=== PATIENT | female | born 1935 | race Caucasian/White ===

== ENCOUNTER 2018-01-29 23:58 | Emergency (ER) | payer BC ==
[~2018-01-29] VITALS: Ht 162.6 cm; Wt 77.1 kg
[~2018-01-29 23:58] MED LIST: ALPRAZOLAM 0.50.5 MG; AMBIEN 10 MG TA10 MG; AMBIEN 10 MG TA10 MG PO; AMBIEN PO; ATIVAN0.5 MG; BENADRYL25 MG PO; CIPROFLOXACIN500 M1 PO; CIPROFLOXACIN500 M3 PO; CLARITIN10 MG PO; COZAAR 25 MG TA25 M1 PO; CYMBALTA30 MG; CYMBALTA30 MG PO; FLAGYL500 MG PO; FLONASE 0.05%50 MCG NASAL; GABAPENTIN 100100 MG PO; HYDROCODON-ACE1 EA11 PO; LASIX 20 MG TAB20 MG PO; LASIX 40 MG TAB40 M2 PO; LISINOPRIL-HCT1 EAC2; LISINOPRIL20 MG PO; MACROBID 100 M100 M1 PO; MEDROLDOSEPACK PO; MOBIC7.5 MG PO; NAPROSYN500 MG PO; NORCO 5-325 TA1 EACH PO; PEPCID20 MG PO; POTASSIUM20 PO; PREDNISONE 20 M20 M1 PO; PREVACID 30MG C30 M1 PO; PREVACID15 MG PO; TOPROL XL100 MG; TOPROL XL50 MG PO; TRAMADOL 50 MG50 MG PO; ULTRAM 50MG TAB50 MG PO; VICODIN; VICODIN ES 7.51 EACH; VOLTAREN GEL 1100 G2 TOP; XANAX 0.25 MG0.25 MG PO; ZANTAC 150MG T150 MG PO; ZOFRAN4 MG PO
[2018-01-30] MEDS ORDERED: FLEXERIL PO (00:29)
[2018-01-30 00:49] LABS: URINE BILIRUBIN NEGATIVE (Negative); URINE BLOOD 1+ (Negative); URINE CLARITY CLEAR; URINE COLOR YELLOW; URINE GLUCOSE-RANDOM NEGATIVE (Negative); URINE KETONES NEGATIVE (Negative); URINE LEUKOCYTES-REFLEX TRACE (Negative); URINE NITRITE-REFLEX NEGATIVE (Negative); URINE PROTEIN 2+ (Negative); URINE SPECIFIC GRAVITY 1.025 (1.005-1.030); URINE UROBILINOGEN 0.2 E.U./dl (0.2-1.0)
[2018-01-30 00:58] LABS: ABSOLUTE MONOCYTES 0.7 thou/uL (0.0-1.2); ABSOLUTE NEUTROPHILS 7.6 thou/uL (1.6-8.1); BASOPHILS 0.4 %; EOSINOPHILS 0.5 %; HEMATOCRIT 38.7 % (37.0-47.0); HEMOGLOBIN 12.7 gm/dL (12.0-15.0); LYMPHOCYTES 19.2 %; MCH 29.3 pg (26.0-34.0); MCHC 32.8 g/dL (28.0-37.0); MCV 89.5 fL (80.0-100.0); MONOCYTES 6.9 %; MPV 7.8 fl. (7.2-11.1); NUCLEATED RBCS 0 /100WBC; PLATELET COUNT* 281 thou/uL (150-400); RBC 4.32 mil/uL (4.20-5.00); RDW-CV 14.6 % (10.5-14.5); WBC 10.3 thou/uL (4.0-11.0)
[2018-01-30 01:01] LABS: CALCIUM 9.1 mg/dL (8.5-10.1); CREATININE 1.3 mg/dL (0.6-1.3); POTASSIUM 3.6 mmol/L (3.5-5.1)
[2018-01-30 01:07] LABS: ALBUMIN 3.5 g/dL (3.4-5.0); TOTAL BILIRUBIN 0.5 mg/dL (<0.1-1.0); TOTAL PROTEIN 7.8 g/dL (6.4-8.2)
[2018-01-30 02:00] LABS: CASTS None Seen /LPF (None Seen); SQUAMOUS >10 Many /LPF (0-3)
[2018-01-30 02:01] LABS: BACTERIA-REFLEX 1-9 Few /HPF (None Seen); CRYSTALS None Seen /LPF (None Seen); MUCUS 0-3 Light strn/LPF (None Seen); URINE RBC 0-2 Rare /HPF (0-2); URINE WBC-REFLEX 0-5 Rare /HPF (0-5)
[2018-01-30] MEDS ORDERED: FLAGYL500 MG PO (03:35)
[2018-01-30] MEDS ORDERED: HYDROCODON-ACE1 EAC7 PO (03:36)
[2018-01-30] MEDS ORDERED: ZOFRAN4 MG PO (03:36)
[2018-01-30 03:44] VITALS: BP 158/86
--- NOTE | 2018-01-30 13:42 | EKG ---
[place] [address] ELECTROCARDIOGRAM REPORT Name: ANTONIA SQUIRES Room: 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: MICHAEL Stapleton : 1935 Requested By: Darnell Celestin Order Number: [id number] MD: Abhijeet Patel Measurements Intervals Radisson Rate: 82 P: 78 OK: 214 QRS: -11 QRSD: 83 T: 11 QT: 392 QTc: 458 Interpretive Statements Sinus rhythm Borderline prolonged OK interval Low voltage, precordial leads LVH by voltage Compared to ECG 05/13/2017 08:06:07 T-wave abnormality no longer present Electronically Signed On 01-30-2018 13:41:54 CDT by Abhijeet Patel [email or web address] <ELECTRONICALLY SIGNED> By: Abhijeet Patel MD, [facility] 01/30/18 1341 0057 0057 Abhijeet Patel MD, [facility] /EPI
== END 2018-01-30 03:55 | disposition home or self-care (01) ==
LOC: M.ERS 23:58
PROVIDERS: Emergency Medicine
DX: K52.9 Noninfective gastroenteritis and colitis, unspecified (principal); F41.9 Anxiety disorder, unspecified; E11.9 Type 2 diabetes mellitus without complications; F32.9 Major depressive disorder, single episode, unspecified; G25.81 Restless legs syndrome; Z88.5 Allergy status to narcotic agent; Z90.710 Acquired absence of both cervix and uterus; Z90.89 Acquired absence of other organs; Z88.8 Allergy status to other drugs, medicaments and biological substances; Z88.2 Allergy status to sulfonamides

== ENCOUNTER → 2018-03-21 | Outpatient (CLI) | payer BC ==
[~2018-03-21] MED LIST changes: +ACYCLOVIR 400400 MG PO; +COLACE100 MG PO; +FLEXERIL PO; +HYDROCODON-ACE1 EAC7 PO; +OMEGA-31000 M1 PO; +OMEPRAZOLE20 M1 PO
== END ==
LOC: M.RAD 13:29
DX: N63.20 Unspecified lump in the left breast, unspecified quadrant (principal); N64.52 Nipple discharge; R92.8 Other abnormal and inconclusive findings on diagnostic imaging of breast; Z85.3 Personal history of malignant neoplasm of breast

== ENCOUNTER 2018-05-31 12:37 | Emergency (ER) | payer BC ==
[~2018-05-31] VITALS: Ht 162.6 cm; Wt 79.4 kg
[~2018-05-31 12:37] MED LIST changes: -ACYCLOVIR 400400 MG PO; -COLACE100 MG PO; -OMEGA-31000 M1 PO; -OMEPRAZOLE20 M1 PO
[2018-05-31] MEDS ORDERED: COLACE100 MG PO (12:53)
[2018-05-31] MEDS ORDERED: OMEGA-31000 M1 PO (12:54)
[2018-05-31] MEDS ORDERED: OMEPRAZOLE20 M1 PO (12:54)
[2018-05-31] MEDS ORDERED: NORCO 5-325 TA1 EACH PO (13:44)
[2018-05-31] MEDS ORDERED: ACYCLOVIR 400400 MG PO (13:44)
[2018-05-31 14:00] VITALS: BP 138/60
== END 2018-05-31 14:01 | disposition home or self-care (01) ==
LOC: M.ERS 12:37
DX: B02.9 Zoster without complications (principal); G25.81 Restless legs syndrome; F41.9 Anxiety disorder, unspecified; I10 Essential (primary) hypertension; E11.9 Type 2 diabetes mellitus without complications; F32.9 Major depressive disorder, single episode, unspecified; Z88.5 Allergy status to narcotic agent; Z88.2 Allergy status to sulfonamides; Z88.1 Allergy status to other antibiotic agents; Z88.8 Allergy status to other drugs, medicaments and biological substances; Z90.710 Acquired absence of both cervix and uterus; Z98.890 Other specified postprocedural states; Z90.49 Acquired absence of other specified parts of digestive tract

== ENCOUNTER → 2019-07-03 | Outpatient (CLI) | payer BC ==
[~2019-07-03] MED LIST changes: +ACYCLOVIR 400400 MG PO; +COLACE100 MG PO; +OMEGA-31000 M1 PO; +OMEPRAZOLE20 M1 PO
== END ==
LOC: M.RAD 11:00
DX: Z12.31 Encounter for screening mammogram for malignant neoplasm of breast (principal)

== ENCOUNTER 2020-02-25 10:07 | Inpatient (IN) | payer BC ==
[~2020-02-25] VITALS: Ht 162.6 cm; Wt 82.1 kg
[2020-02-25 10:20] VITALS: BP 157/77
[2020-02-25 11:18] LABS: ABSOLUTE BASOPHILS 0.1 thou/uL (0.0-0.2); ABSOLUTE EOSINOPHILS 0.2 thou/uL (0.0-0.7); ABSOLUTE LYMPHOCYTES 1.2 thou/uL (0.8-5.3); ABSOLUTE MONOCYTES 0.9 thou/uL (0.0-1.2); ABSOLUTE NEUTROPHILS 6.6 thou/uL (1.6-8.1); BASOPHILS 0.6 %; EOSINOPHILS 2.5 %; HEMATOCRIT 38.1 % (37.0-47.0); LYMPHOCYTES 13.2 %; MCH 30.5 pg (26.0-34.0); MCHC 34.1 g/dL (28.0-37.0); MCV 89.5 fL (80.0-100.0); MONOCYTES 10.1 %; MPV 7.6 fl. (7.2-11.1); NUCLEATED RBCS 0 /100WBC; PLATELET COUNT* 288 thou/uL (150-400); POLYS 73.6 %; RBC 4.26 mil/uL (4.20-5.00); RDW-CV 14.4 % (10.5-14.5)
[2020-02-25 11:27] LABS: CALCIUM 8.4 mg/dL (8.5-10.1); CREATININE 1.3 mg/dL (0.6-1.3); POTASSIUM 3.9 mmol/L (3.5-5.1)
[2020-02-25 11:32] LABS: TOTAL BILIRUBIN 0.5 mg/dL (<0.1-1.0); TOTAL PROTEIN 7.8 g/dL (6.4-8.2)
[2020-02-25 12:30] LABS: URINE BILIRUBIN NEGATIVE (Negative); URINE BLOOD TRACE (Negative); URINE CLARITY CLEAR; URINE COLOR YELLOW; URINE GLUCOSE-RANDOM NEGATIVE (Negative); URINE KETONES NEGATIVE (Negative); URINE NITRITE-REFLEX NEGATIVE (Negative); URINE PROTEIN NEGATIVE (Negative); URINE UROBILINOGEN 0.2 E.U./dl (0.2-1.0)
[2020-02-25] MEDS ORDERED: OXYBUTYNIN 5 MG5 M2 PO (12:30)
[2020-02-25] MEDS ORDERED: SERTRALINE HCL100 MG PO (12:30)
[2020-02-25 12:31] LABS: URINE LEUKOCYTES-REFLEX 2+ (Negative)
[2020-02-25] MEDS ORDERED: CIMETIDINE 400400 MG PO (12:31)
[2020-02-25 12:45] LABS: BACTERIA-REFLEX 1-9 Few /HPF (None Seen); CASTS None Seen /LPF (None Seen); CRYSTALS None Seen /LPF (None Seen); MUCUS None Seen strn/LPF (None Seen); RENAL EPITHELIAL CELLS 0-3 Few /LPF (None Seen); SQUAMOUS 4-10 Moderate /LPF (0-3); URINE RBC 0-2 Rare /HPF (0-2); URINE WBC-REFLEX 6-15 Few /HPF (0-5)
[2020-02-25 15:55] VITALS: BP 151/73
[2020-02-25 16:05] VITALS: BP 161/80
--- NOTE | 2020-02-25 19:35 | NUR ---
PATIENT ARRIVED FROM ER THIS EVENING. PATIENT SETTLED TO BED AND HISTORY, SSESSMENT AND VITALS COMPLETED AND DOCUMENTED. WOUND TO LEFT 2ND TOE CULTURED AND PICTURE TAKEN. PATIENT DENIES ANY PAIN. PATIENT HAS GOOD APPETITE. NEW IV STARTED TO LEFT AC. PATIENT DENIES ANY NEEDS AT THIS TIME. CALL LIGHT WITHIN REACH.
[2020-02-25 20:00] VITALS: BP 152/79
--- NOTE | 2020-02-26 04:23 | NUR ---
PT A&O. MEDS GIVEN ORDERED. TRAMADOL, BENEDRYL GIVEN PER PT REQUEST. PT UP TO THE BATHROOM WITH STANDBY ASSIST WITH WALKER. NPO SINCE MIDNIGHT FOR POSSIBLE PROCEDURE. PT RESTING IN CHAIR. HOURLY ROUNDINGS COMPLETED. WILL CONTINUE TO MONITOR.
[2020-02-26 04:48] LABS: HEMATOCRIT 38.7 % (37.0-47.0); MCH 30.4 pg (26.0-34.0); MCHC 33.7 g/dL (28.0-37.0); MCV 90.3 fL (80.0-100.0); MPV 8.2 fl. (7.2-11.1); RBC 4.29 mil/uL (4.20-5.00); RDW-CV 14.8 % (10.5-14.5); WBC 8.9 thou/uL (4.0-11.0)
[2020-02-26 05:37] LABS: ALBUMIN 3.1 g/dL (3.4-5.0); CALCIUM 8.3 mg/dL (8.5-10.1); CREATININE 1.2 mg/dL (0.6-1.3); POTASSIUM 3.3 mmol/L (3.5-5.1); TOTAL BILIRUBIN 0.5 mg/dL (<0.1-1.0); TOTAL PROTEIN 8.2 g/dL (6.4-8.2)
[2020-02-26 06:55] VITALS: BP 168/76
[2020-02-26 07:35] VITALS: BP 160/76
--- NOTE | 2020-02-26 07:51 | CON ---
[address] [address] CONSULTATION Name: ANTONIA SQUIRES Room: [address] JessiRSteph#: [id number] Admission: 02/25/20 Attend Phys: Mitra Short MD Discharge: Date of : 35 Report #: [id number] THIS REPORT FOR: //name// cc: Abhi Johnston Russell J. DO ~ THIS REPORT FOR: //name// CC: Mitra Johnston DATE OF SERVICE: 02/25/2020 INFECTIOUS DISEASE CONSULTATION ATTENDING PHYSICIAN: Dr. Short. REASON FOR EVALUATION: Left second toe deep infection, likely chronic osteomyelitis. HISTORY OF PRESENT ILLNESS: Chart reviewed, patient examined. This is an 85-year-old with known history of arthritis, I suspect may have immune component, also hypertension, who states she is not aware of any particular injury, but did present with complaints of 1-2 week history of increasing inflammation associated with her particularly left second toe. She is not particularly aware of details. She is not aware of any fevers or chills. She notes her appetite has been somewhat fluctuant. She does deny diabetes, although she has been suspected to have had in the past and apparently has some degree of peripheral neuropathy. Denies any significant pulmonary or gastrointestinal related complaints. ALLERGIES: LISTED SULFA, LISINOPRIL, CODEINE, AND PREDNISONE. MEDICATIONS: Include famotidine, sertraline, fish oil, furosemide, meloxicam, metoprolol, vancomycin, enoxaparin, oxybutynin, ceftriaxone, p.r.n. analgesics and antiemetics. PAST MEDICAL HISTORY: History of hypertension, anxiety, restless leg, previous hysterectomy, breast biopsy, knee surgeries, and tonsillectomy. SOCIAL HISTORY: Former smoker. No ethanol. No illicit drug use. FAMILY HISTORY: Noncontributory. REVIEW OF SYSTEMS: Otherwise, unremarkable 10-point review of systems. PHYSICAL EXAMINATION: [place] [address] CONSULTATION Name: ANTONIA SQUIRES Room: [address]#: [id number] Admission: 02/25/20 Attend Phys: Mitra Short MD Discharge: Date of : 35 Report #: [id number] GENERAL: She may have a degree of dementia, appears somewhat chronically ill, undernourished, in mild distress. She is pleasant, cooperative. VITAL SIGNS: Temperature 98.2, pulse 72, respirations 16, blood pressure 151/73. SKIN: Warm, dry, no rashes. HEENT: Normocephalic. Extraocular muscles intact. NECK: Supple. LUNGS: Diminished breath sounds. HEART: Regular, soft systolic murmur. ABDOMEN: Soft, nontender. EXTREMITIES: Distal lower extremity has deformities about the small joints of hands and feet. There is moderate to marked changes with inflammation noted in the 2nd left toe on the medial aspect. There is likely a sinus tract. She has got a thickened, partially callus noted. I do not appreciate any odor. It is not clear if she has significant pain with manipulation. GENITOURINARY AND RECTAL: Deferred. LABORATORY DATA: Plain film of the foot, periosteal thickening along the 2nd through 4th metatarsals without fracture, soft tissue swelling of the second toe on the left. CBC: White count 9.0, H and H 13.0 and 38.1, platelets of 288. Electrolytes: Sodium 134, potassium 3.9, chloride 101, bicarbonate 27, anion gap of 6, BUN and creatinine 18 and 1.3. LFTs are unremarkable. Albumin of 3.0, total protein 7.8, estimated GFR of 39. Lactic acid 1.2. Urinalysis 6-15 white cells and 1-9 bacteria. MRI of the foot, changes consistent for osteomyelitis involving the middle and distal phalanges of the second toe on the left toe, tissue inflammation suggests cellulitis as well. Chart reviewed, patient examined. ASSESSMENT AND PLAN: Left toe osteomyelitis. We will continue empiric therapy. Noted Podiatry to evaluate. We will try to obtain culture from what appears to be a sinus tract. In the event, I think the likelihood we will need some sort of surgical intervention up to including toe amputation, left and monitor expectantly. We will add incentive spirometry. Would be concerned about possible nosocomial related complications including infection. I did discuss with the patient, it is not clear to the extend she understands. <ELECTRONICALLY SIGNED> By: Ronan Arceo MD 02/26/20 0751 1620 [id number] Arceo MD /nt
--- NOTE | 2020-02-26 10:06 | NUR ---
CM spoke with Pt, Pt seemed a little confused. CM spoke with Pt's via phone. Per . Pt can get confused sometimes. Independent with ADLs. does majority of IADLs. 4 supportive children that assist as needed also. Pt uses a cane for mobility. No hx of HH or SNF. asked that CM speak with his dtr, Magda [phone]. Magda confirmed that kids help as needed and plan to work together to figure out what Pt needs at ri, one of the kids will like stay with Pt/ at ri. is scheduled to have a lap malick next . CM discussed possible dc needs of Pt. Magda sets up Pt's meds at home and confirms that if Pt gets off on her meds, she does have episodes of confusion, but dtr states that if Pt is taking meds appropriately, Pt is A&O. has hx of [facility], dtr would like to use [facility] for Pt at ri. Pt to have surgery today by podiatry. Following.
[2020-02-26 16:00] VITALS: BP 135/64
--- NOTE | 2020-02-26 18:29 | NUR ---
PT A&OX4 CONFUSED AT TIMES. VSS, NO C/O PAIN AT THIS TIME. PT NPO THIS AM FOR PROCEDURE LATER TODAY. PT REMAINS CONTINENT OF B/B. PT UP SBA W/WALKER PRIOR TO SX. LIMITED WB FOLLOWING PROCWEDURE. PT IS ACCUCHECK, NO INSULIN INDICATED THIS SHIFT PER SLIDING SCALE. IV TO LFA PATENT, NO REDNESS/SWELLING AT SITE. DRESSING C/D/I. PT L 2ND TOE AMPUTATED THIS AFTERNOON BY DR Jayce LAGOS. PT RESTS IN BED WITH FOOT ELEVATED. FALL PRECAUTIONS IN PLACE, CALL IGHT IN REACH. WILL CONTINUE TO MONITOR.
[2020-02-26 20:12] VITALS: BP 136/67
[2020-02-27 00:40] VITALS: BP 153/69
[2020-02-27 03:45] VITALS: BP 150/71
[2020-02-27 03:49] LABS: HEMATOCRIT 35.2 % (37.0-47.0); HEMOGLOBIN 12.3 gm/dL (12.0-15.0); MCH 31.2 pg (26.0-34.0); MCHC 34.8 g/dL (28.0-37.0); MCV 89.7 fL (80.0-100.0); MPV 7.9 fl. (7.2-11.1); RBC 3.93 mil/uL (4.20-5.00); RDW-CV 14.5 % (10.5-14.5)
[2020-02-27 04:18] LABS: ALBUMIN 2.7 g/dL (3.4-5.0); CALCIUM 8.2 mg/dL (8.5-10.1); CREATININE 1.1 mg/dL (0.6-1.3); MAGNESIUM 1.9 mg/dL (1.8-2.4); POTASSIUM 4.5 mmol/L (3.5-5.1); TOTAL BILIRUBIN 0.4 mg/dL (<0.1-1.0); TOTAL PROTEIN 7.1 g/dL (6.4-8.2)
--- NOTE | 2020-02-27 04:43 | NUR ---
ASSUMED CARE OF PT 02/26/20 AT APPROX 1915. PT A&OX4, ON ROOM AIR, VSS, NWB TO LLE MINTAINED. POTASSIUM REPLACEMENT COMPLETED. PAIN MEDS REQUESTED AND GIVEN ORDERED. WILL CONTINUE WITH PLAN OF CARE.
[2020-02-27 08:00] VITALS: BP 137/52
--- NOTE | 2020-02-27 09:10 | OP ---
[address] [address] OPERATIVE REPORT Name: ANTONIA SQUIRES Room: [address] IN .R.#: [id number] Admission: 02/26/20 Attend Phys: Mitra Short MD Discharge: Date of : 35 Report #: [id number] THIS REPORT FOR: //name// cc: Abhi Johnston Russell J. DO ~ THIS REPORT FOR: //name// CC: Mitra Johnston DATE OF SERVICE: 02/26/2020 SURGEON: Tiffanie Mishra DPM PREOPERATIVE DIAGNOSIS: Osteomyelitis, left second toe. POSTOPERATIVE DIAGNOSIS: Osteomyelitis, left second toe. PROCEDURE: Amputation of left second toe. PATHOLOGY: Left second toe and deep cultures, status post removal of left second toe, aerobic and anaerobic. ANESTHESIA: Local MAC. HEMOSTASIS: None. ESTIMATED BLOOD LOSS: Less than 10 mL. MATERIALS: 4-0 nylon. INJECTABLES: 20 mL of 1% lidocaine plain preoperatively and ankle block and 10 mL of 0.5% bupivacaine plain intraoperatively. COMPLICATIONS: None. DESCRIPTION OF PROCEDURE: The patient was brought to the OR and kept on her hospital bed in the supine position. Anesthesia was administered. A timeout was called, patient identified along with any allergies and any other pertinent information. Site was identified along with the procedure. All parties in the OR were in agreement. Local block performed to the patient's left ankle. The patient was then prepped and draped in the usual sterile and aseptic manner. Attention was then directed to the left foot where the left second toe was held with a lap sponge and utilizing a 15 blade, the toe was amputated at the level of the second metatarsophalangeal joint. Active bleeding was noted. There was purulence distally in the left second toe at the proximal [place] [address] OPERATIVE REPORT Name: ANTONIA SQUIRES Room: [address] IN [facility]#: [id number] Admission: 02/26/20 Attend Phys: Mitra Short MD Discharge: Date of : 35 Report #: [id number] There was no purulence at the metatarsophalangeal joint. The toe was then removed and placed in formalin and will go to pathology. Deep cultures were obtained. The surgical site was then copiously irrigated with sterile saline and antibiotic solution. The skin was closed with 4-0 nylon and then dressed with Xeroform gauze, 4 x 4s, Kerlix and an Dev wrap. Vascular status remained intact to the patient's left foot. Adequate bleeding was noted throughout the procedure. No cautery was used. The patient left the OR with vital signs stable and vascular status intact to the left foot. <ELECTRONICALLY SIGNED> By: Tiffanie Mishra DPM 02/27/20 0910 1331 [id number] Mishra DPM /mayte
--- NOTE | 2020-02-27 09:43 | EKG ---
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: [place] : 1935 Requested By: Mitra Short Order Number: [id number] Reading MD: Manuel Montgomery Measurements Intervals Mather Rate: 72 P: 65 IA: 199 QRS: -9 QRSD: 89 T: 20 QT: 399 QTc: 437 Interpretive Statements Sinus rhythm Compared to ECG 01/30/2018 00:57:12 Left ventricular hypertrophy no longer present Electronically Signed On 02-27-2020 9:42:40 CDT by Manuel Montgomery [email or web address] <ELECTRONICALLY SIGNED> By: Rachel Montgomery MD, [facility] 02/27/20 0942 8 8 Rachel Montgomery MD, [facility] /EPI
[2020-02-27 12:00] VITALS: BP 142/60
[2020-02-27 16:00] VITALS: BP 168/78
--- NOTE | 2020-02-27 20:45 | NUR ---
I ASSUMED CARE OF THE PATIENT AT 0700. SHE IS AWAKE AND ORIENTED TO SELF. BED IS IN THE LOW LOCKED POSITION AND CALL LIGHT IS IN REACH. BED ALARM AND CHAIR ALARM ARE IN USE. SHE IS UP WITH ASSIST OF 1-2, GAIT BELT AND WALKER. PATIENT IS IMPULSIVE AND FORGETFUL. HOURLY ROUNDING IS COMPLETED AND PATIENT NEEDS ARE MET. PAIN MEDS ARE MANAGING PAIN. FOOT PUMP IS ON THE RIGHT AND LEFT FOOT IS ELEVATED. SHE HAS A SMALL POST OP SHOE ON THE LEFT. BLOOD SUGAR IS MONITORED AND INSULIN IS NOT NEEDED. BED SIDE COMMODE IS UTILIZED. WILL CONTINUE TO MONITOR. DRESSING WAS CHANGED BY DR LAGOS ON HER SURGICAL FOOT.
[2020-02-27 23:43] VITALS: BP 143/63
[2020-02-28 04:15] LABS: HEMATOCRIT 35.3 % (37.0-47.0); HEMOGLOBIN 11.8 gm/dL (12.0-15.0); MCH 30.5 pg (26.0-34.0); MCHC 33.5 g/dL (28.0-37.0); MPV 7.9 fl. (7.2-11.1); RBC 3.88 mil/uL (4.20-5.00); RDW-CV 14.5 % (10.5-14.5); WBC 6.7 thou/uL (4.0-11.0)
[2020-02-28 04:42] LABS: ALBUMIN 2.5 g/dL (3.4-5.0); CALCIUM 8.1 mg/dL (8.5-10.1); CREATININE 1.2 mg/dL (0.6-1.3); MAGNESIUM 1.9 mg/dL (1.8-2.4); POTASSIUM 4.3 mmol/L (3.5-5.1); TOTAL BILIRUBIN 0.3 mg/dL (<0.1-1.0); TOTAL PROTEIN 6.9 g/dL (6.4-8.2)
--- NOTE | 2020-02-28 05:34 | NUR ---
PATIENT SLEPT WELL DURING THIS SHIFT. PT IMPULSIVE, CANNOT REMEMBER TO USE CALL LIGHT PRIOR TO GETTING OUT OF BED. PT USUALLY NEEDING TO VOID WHEN GETTING UP. PT VOIDS YELLOW URINE PER BSC. PT ALERT/ORIENTED BUT CONFUSED. PT WITH UP WITH WALKER, GAIT BELT AND CLOSE STANDBY. PT C/O LT FOOT PAIN; PAIN MEDICATION GIVEN AND PT WOULD RETURN TO SLEEP. PT WITH WALKING SHOE BUT REFUSED TO HAVE SHOE ON WHEN PIVOTING TO BSC. FREQUENTLY USED ITEMS AND CALL LIGHT WITHIN REACH. SIDERAILS UPX3 AND BED ALARM ON. WILL CONTINUE TO MONITOR.
[2020-02-28 08:00] VITALS: BP 152/68
--- NOTE | 2020-02-28 17:02 | NUR ---
PATIENT RESTING UP IN CHAIR. PATIENT IS UP STANDBY ASSIST WITH WALKER AND WALKING SHOE. PATIENT IS FORGETFUL AND IMPULSIVE. PATIENT HAS COMPLAINTS OF PAIN TO LEFT FOOT TREATED ADEQUATELY WITH MEDICATION AND REST. PATIENT HAS GOOD APPETITE. PATIENT DENIES ANY NEEDS AT THIS TIME. CALL LIGHT WITHIN REACH. CHAIR ALARM ON.
[2020-02-28 20:28] VITALS: BP 124/64
--- NOTE | 2020-02-29 05:33 | NUR ---
PATIENT SLEPT OFF AND ON DURING THIS SHIFT. PT IS A/O BUT FORGETFUL AND VERY IMPULSIVE. PT FORGETS TO USE CALL LIGHT PRIOR TO GETTING OUT OF BED OR CHAIR. PT UP WITH ONE AND WALKER TO [place] AND VOIDS YELLOW URINE. PT C/O PAIN IN LT FOOT X2 AND RECEIVED HYDROCODONE 1 TAB EACH TIME. PT GETS OUT OF CHAIR/BED QUICKLY WITH NO TIME TO PUT ON SPECIALTY SHOE. PT REFUSES TO WEAR IT IN BED. DSG ON LT FOOT C/D/I. LT GREAT TOE WARM TO TOUCH; UNABLE TO ASSESS PEDAL PULSE. FREQUENTLY USED ITEMS AND CALL LIGHT WITHIN REACH. PT IS CURRENTLY SITTING IN RECLINER WITH FEET ELEVATED AND CHAIR ALARM ON. WILL CONTINUE TO MONITOR.
[2020-02-29 07:23] VITALS: BP 139/79
[2020-02-29 08:08] LABS: HEMATOCRIT 37.3 % (37.0-47.0); HEMOGLOBIN 12.4 gm/dL (12.0-15.0); MCH 29.9 pg (26.0-34.0); MCHC 33.3 g/dL (28.0-37.0); MCV 89.6 fL (80.0-100.0); MPV 7.5 fl. (7.2-11.1); RBC 4.16 mil/uL (4.20-5.00); RDW-CV 14.7 % (10.5-14.5); WBC 6.2 thou/uL (4.0-11.0)
[2020-02-29 08:16] LABS: CALCIUM 8.7 mg/dL (8.5-10.1); CREATININE 1.3 mg/dL (0.6-1.3); MAGNESIUM 2.1 mg/dL (1.8-2.4); POTASSIUM 3.5 mmol/L (3.5-5.1)
--- NOTE | 2020-02-29 12:46 | NUR ---
DC pending inpt rehab consult and once decision on if they will consider accepting, then will be pending insurance auth. SW to continue to follow to assist with safe dc planning.
--- NOTE | 2020-02-29 16:04 | NUR ---
PATIENT ANXIOUS AND CONFUSED THIS AFTERNOON, ALTHOUGH PATIENT DOES ASK APPROPRIATE QUESTIONS DURING CONFUSION PERIODS. PATIENT DESCRIBED FEELING ANXIOUS TO NURSE THIS AFTERNOON, PATIENT GIVEN PRN HYDROCODONE AT THAT TIME PATIENT STATED HER LEFT FOOT WAS HURTING. PATIENT UP WITH SBA, GAIT BELT AND WALKER FROM BED TO CHAIR MULTIPLE TIMES. PATIENT VOIDING PER BR AND BSC. PATIENT DID HAVE A BM THIS SHIFT. PATIENT AMBULATED WITH NURSING STAFF TO BATHROOM AND STATED "I THINK I AM GOING TO HAVE A HEART ATTACK" WHILE SITTING ON TOILET. PATIENT SAID TO STAFF "I WOULD LIKE 2 ASPIRINS AND A DIET COKE PLEASE." NO DISTRESS NOTED IN PATIENT AT THAT TIME. DR. PARRA WAS NOTIFIED AND REQUESTED SOMETHING FOR ANXIETY, NO RETURN CALL. VITALS STABLE CHARTED. THIS NURSE ASKED PATIENT IF SHE TAKES ANYTHING FOR ANXIETY WHEN THIS HAPPENS AT HOME PATIENT STATED TO NURSE "WELL WHAT DO YOU TAKE AT HOME FOR YOUR ANXIETY." PATIENT AT THE TIME WAS TRYING TO GET AHOLD OF AND DAUGHTER AND NO ANSWER FROM EITHER LIBERTARIAN. PATIENT DID SETTLE DOWN BUT REQUESTED ASPIRIN FOR HER HEADACHE. PRN TYLENOL BROUGHT TO PATIENT PER REQUEST AND PATIENT TOLD NURSE "I DONT WANT THAT." PATIENTS HERE AT BEDSIDE AND PATIENT CALM AND COOPPERATIVE, NO FURTHER COMPLAINTS. PATIENT DID WALK IN [place] WITH PT, SURGICAL SHOE IN PLACE.
[2020-02-29 16:29] VITALS: BP 152/78
[2020-02-29 19:20] VITALS: BP 153/54
--- NOTE | 2020-03-01 06:40 | NUR ---
PT ORIENTED TO SELF. VERY CONFUSED. FORGETFUL. PT NONCOMPLIANT WITH FALL STAYING IN BED. PT WAS UP ALL NIGHT, ATTMEPTING TO GET OUT OF BED. PT OCCASSIONALLY WAS AGITATED AND SWINGING PUNCHES AT STAFFING. DR PARRA PAGED. DR PARRA ORDERED AMBIEN. AMBIEN DID NOT HELP. HOUSE SUP NOTIFIED OF THE NEED FOR A SITTER. NON WAS AVAILABLE. NURSING SAT IN PT'S ROOM FOR ABOUT HALF OF SHIFT. REHAB SALES RELATIONSHIP MANAGER CAME TO ASSIST WITH PT'S CARE PER HOUSE SUP. PT CURRENTLY IN BED AWAKE. FALL PRECAUTION IN PLACE. WILL CONTINUE TO MONITOR.
[2020-03-01 07:35] VITALS: BP 163/92
--- NOTE | 2020-03-01 10:15 | NUR ---
lesa sent message to brayden to f/u on rehab status. waiting to hear back.
[2020-03-01 16:00] VITALS: BP 180/63
[2020-03-01 16:35] VITALS: BP 177/56
--- NOTE | 2020-03-01 17:07 | PATH ---
[address] [place] [address] PATHOLOGY RPT PROCEDURE Name: ANTONIA SQUIRES Room: [address] IN .R.#: [id number] Admission: 02/26/20 Date of : 35 Discharge: Report #: [id number] Path Case #: [id number] [facility] Accession Number: [id number] . 01 Material submitted: . toe - LEFT SECOND TOE. Modifiers: left, second . 01 Clinical history: . Osteomyelitis left second toe; cellulitis of foot SIRS of non-infectious origin without acute organ dysfunction . 02 Diagnosis: Left second toe: - Benign toe with nonspecific ulceration, extensive acute inflammation of soft tissues and osteomyelitis of phalangeal bone, with proximal disarticulation margin free of osteomyelitis. (BRIDGET:shayy; 03/01/2020) [facility] 03/01/2020 1652 Local . 02 Electronically signed: . Basim Adrian MD, Pathologist NPI- [id number] . 01 Gross description: . The specimen is received in formalin, labeled "Antonia Squires, left second toe". Received is an amputated digit measuring 5.5 x 2.7 x 2.7 cm in greatest dimensions. The bone margin is smooth and concave in appearance, consistent with disarticulation. The bone and soft tissue margins are inked black. The nail is present displaying a light talbot and thickened appearance. The distal third of the toe is bent to the left. On the medial and plantar aspects of the specimen, there is a poorly circumscribed, irregular in contour and merritt-brown lesion measuring 3.7 x 2.5 cm, which is 0.7 cm from the closest skin margin. The specimen is submitted representatively as follows: . A1 horizontal cross-section through lesion to include underlying bone, following decalcification A2 longitudinal cross section through bone margin, following decalcification. (CAA; 02/29/2020) QAC/QAC 02/29/2020 1154 Local . 02 Pathologist provided ICD-10: L97.529, M86.172 . 02 CPT . 138742, 428351 Specimen Comment: A courtesy copy of this report has been sent to [phone], [place] [address] PATHOLOGY RPT PROCEDURE Name: ANTONIA SQUIRES Room: [address] ADM IN M.R.#: [id number] Admission: 02/26/20 Date of : 35 Discharge: Report #: [id number] Path Case #: [id number] Specimen Comment: [id number], Specimen Comment: Report sent to ,DR CONDON / DR CONDE Performed at: [address] [facility] [address], [place], [place] [id number] MD Abhi Canas MD Phone: [phone] Performed at: 02 [facility] Juanita Mcbride, [place] [id number] MD Basim Adrian MD Phone: [phone]
--- NOTE | 2020-03-01 18:06 | NUR ---
PT ALERT/ORIENTED W/SOME CONFUSION. VISUAL HALLUCINATIONS THIS AM. PER LAST NOC SHIFT, PT DID NOT SLEEP ALL NIGHT. PT UP AND DOWN FROM BED TO RECLINER REPEATEDLY. FALL PRECAUTIONS IN PLACE. PT DOES NOT USE CALL LIGHT TO MAKE NEEDS KNOWN. PT IS ACCUCHECK, NO INSULIN REQUIRED. DRESSING CHANGED BY DR Jayce LAGOS THIS AFTERNOON. IV TO LFA NO LONGER PATENT, DC'D. NO NEW ACCESS AT THIS TIME APPROVED BY DR PARRA AND ASHLEY. MEDS CHANGED TO PO ANTIBIOTICS. PT UP SBA W/WALKER AND GAIT BELT TO RESTROOM AND TO AMB AROUND UNIT. PT B/P ELEVATED THIS AFTERNOON, DR PARRA NOTIFIED AND NORVASC ADDED TO NOV. PO ATIVAN ADMINISTERED WELL. CASE MANAGEMENT CONTINUES TO WORK ON PLACEMENT FOR DC. PT CURRENTLY RESTS IN BED, CALL LIGHT IN REACH, ALARMS ON FOR SAFETY. STAFF IN ROOM W/PT. WILL CONTINUE TO MONITOR.
[2020-03-01 20:00] VITALS: BP 174/59
--- NOTE | 2020-03-02 05:40 | NUR ---
PT AWAKE MUCH OF THE NIGHT, MOVING FROM BED TO CHAIR AND WALKING IN HALLS WITH WALKER, GB AND SBA. SITTER AT BEDSIDE. PT AO TO SELF, CONFUSED. TAKING PILLS WHOLE WITH WATER, RECEIVING PO PAIN MED PRN FOR CO LLE PAIN. DRSG TO L FOOT CDI, SURGICAL SHOE ON WHEN AMBULATING. NO IV ACCESS. UP WITH ASSIST TO BR TO VOID WITHOUT DIFFICULTY. CM FOLLOWING FOR DC PLAN.
[2020-03-02 08:10] VITALS: BP 184/79
[2020-03-02] MEDS ORDERED: NORVASC5 MG PO (13:16)
[2020-03-02 14:20] VITALS: BP 184/79
--- NOTE | 2020-03-02 14:22 | NUR ---
Pt high level functionally to be able to qualify for inpt rehab or SNF. Pt able to dc home with and children's support and HH services to follow. Pt dtr Magda in agreement with this plan. FLORINDA sent referral and HH orders and med list to [facility] as that is pt/family preference of HH agency. Pt dtr can provide pt ride home at dc today. [facility] ph: [phone]
--- NOTE | 2020-03-02 18:16 | NUR ---
PT ALERT/AWAKE, ORIENTED TO SELF. VSS. PT NO LONGER ON 1:1 OBS PER SHIRRING MACHINE OPERATOR AUTOMATIC. FALL PRECAUTIONS IN PLACE FOR PT SAFETY. PT ROOM NEAR NURSES STATION. PT ACCUCHECK, NO INSULIN INDICATED. PER HOSPITALIST AND CASE MGMNT, PT TO DC HOME. FAMILY STATES TO CM THAT [facility] WILL ASSIST IN PT CARE. PT STILL OCCASIONALLY IMPULSIVE, BUT REMAINS SOMEWHAT PLEASANT WHEN INTERACTING WITH STAFF. Jayce AMIN CONTACTED R/T THIS PT DC PLAN. DR AMIN SPOKE W/PT [facility] TO DISCUSS HOME CARE PLAN. PT RESTS IN ROOM AT THIS TIME, UP TO RECLINER W/CALL LIGHT AND PHONE IN REACH. WILL CONTINUE TO MONITOR.
[2020-03-02] MEDS ORDERED: RIFAMPIN 300 M300 MG PO (19:34)
[2020-03-02] MEDS ORDERED: DICLOXACILLIN500 MG PO (19:40)
== END 2020-03-02 20:00 | disposition home health service (06) | DRG 580 ==
LOC: M.ERS 10:07 → M.TBA-ER 12:30 → M.3W 15:28
PROVIDERS: Emergency Medicine Emergency Medical Services; ADMIT Internal Medicine; ATTEND Internal Medicine
PROC: 0Y6N0Z5 Detachment at Left Foot, Complete 2nd Ray, Open Approach (ICD-10-PCS; principal; 2020-02-26)
DX: L03.032 Cellulitis of left toe (principal); R65.10 Systemic inflammatory response syndrome (SIRS) of non-infectious origin without acute organ dysfunction; M86.9 Osteomyelitis, unspecified; E11.69 Type 2 diabetes mellitus with other specified complication; G25.81 Restless legs syndrome; F41.9 Anxiety disorder, unspecified; I10 Essential (primary) hypertension; F03.90 Unspecified dementia, unspecified severity, without behavioral disturbance, psychotic disturbance, mood disturbance, and anxiety; F32.9 Major depressive disorder, single episode, unspecified; Z79.899 Other long term (current) drug therapy; Z88.5 Allergy status to narcotic agent; Z90.49 Acquired absence of other specified parts of digestive tract; Z90.89 Acquired absence of other organs; Z88.2 Allergy status to sulfonamides; Z90.710 Acquired absence of both cervix and uterus; Z88.8 Allergy status to other drugs, medicaments and biological substances

== ENCOUNTER 2020-03-07 12:40 | Emergency (ER) | payer BC ==
[~2020-03-07] VITALS: Ht 162.6 cm; Wt 79.4 kg
[~2020-03-07 12:40] MED LIST changes: +CIMETIDINE 400400 MG PO; +DICLOXACILLIN500 MG PO; +NORVASC5 MG PO; +OXYBUTYNIN 5 MG5 M2 PO; +RIFAMPIN 300 M300 MG PO; +SERTRALINE HCL100 MG PO
[2020-03-07] MEDS ORDERED: POTASSIUM20 PO (13:42)
[2020-03-07] MEDS ORDERED: DICLOXACILLIN500 MG PO (13:42)
[2020-03-07] MEDS ORDERED: CLONAZEPAM 0.50.5 M1 PO (13:44)
[2020-03-07 13:47] LABS: URINE BILIRUBIN NEGATIVE (Negative); URINE BLOOD NEGATIVE (Negative); URINE CLARITY CLEAR; URINE COLOR YELLOW; URINE GLUCOSE-RANDOM NEGATIVE (Negative); URINE KETONES NEGATIVE (Negative); URINE LEUKOCYTES-REFLEX TRACE (Negative); URINE NITRITE-REFLEX NEGATIVE (Negative); URINE PROTEIN TRACE (Negative); URINE SPECIFIC GRAVITY 1.015 (1.005-1.030); URINE UROBILINOGEN 0.2 E.U./dl (0.2-1.0)
[2020-03-07 14:02] LABS: BACTERIA-REFLEX None Seen /HPF (None Seen); HYALINE CASTS 0-3 Few /LPF (None Seen); MUCUS 0-3 Light strn/LPF (None Seen); SQUAMOUS 4-10 Moderate /LPF (0-3); URINE RBC None Seen /HPF (0-2); URINE WBC-REFLEX 0-5 Rare /HPF (0-5)
[2020-03-07 14:03] LABS: CRYSTALS None Seen /LPF (None Seen)
[2020-03-07 14:10] LABS: ABSOLUTE BASOPHILS 0.1 thou/uL (0.0-0.2); ABSOLUTE EOSINOPHILS 0.2 thou/uL (0.0-0.7); ABSOLUTE LYMPHOCYTES 1.7 thou/uL (0.8-5.3); ABSOLUTE MONOCYTES 0.9 thou/uL (0.0-1.2); ABSOLUTE NEUTROPHILS 5.4 thou/uL (1.6-8.1); BASOPHILS 1.1 %; EOSINOPHILS 2.7 %; HEMATOCRIT 39.7 % (37.0-47.0); HEMOGLOBIN 13.3 gm/dL (12.0-15.0); LYMPHOCYTES 20.3 %; MCHC 33.5 g/dL (28.0-37.0); MCV 89.4 fL (80.0-100.0); MONOCYTES 11.3 %; MPV 7.9 fl. (7.2-11.1); NUCLEATED RBCS 0 /100WBC; PLATELET COUNT* 344 thou/uL (150-400); POLYS 64.6 %; RBC 4.44 mil/uL (4.20-5.00); RDW-CV 15.2 % (10.5-14.5); WBC 8.3 thou/uL (4.0-11.0)
[2020-03-07 14:16] LABS: CALCIUM 9.2 mg/dL (8.5-10.1); CREATININE 1.3 mg/dL (0.6-1.3); POTASSIUM 3.7 mmol/L (3.5-5.1)
[2020-03-07 14:26] LABS: ALBUMIN 3.2 g/dL (3.4-5.0); TOTAL BILIRUBIN 0.8 mg/dL (<0.1-1.0)
[2020-03-07] MEDS ORDERED: KEFLEX500 M1 PO (16:36)
[2020-03-07 17:07] VITALS: BP 131/70
== END 2020-03-07 17:22 | disposition home or self-care (01) ==
LOC: M.ERS 12:40
PROVIDERS: Emergency Medicine Emergency Medical Services; Physician Assistant
DX: R41.0 Disorientation, unspecified (principal); G25.81 Restless legs syndrome; I10 Essential (primary) hypertension; E11.9 Type 2 diabetes mellitus without complications; Z88.5 Allergy status to narcotic agent; Z88.6 Allergy status to analgesic agent; Z88.2 Allergy status to sulfonamides; Z88.1 Allergy status to other antibiotic agents; Z79.899 Other long term (current) drug therapy; Z90.710 Acquired absence of both cervix and uterus; Z90.49 Acquired absence of other specified parts of digestive tract; Z98.890 Other specified postprocedural states

== ENCOUNTER → 2021-03-07 | Outpatient (CLI) | payer BC ==
[~2021-03-07] MED LIST changes: +CLONAZEPAM 0.50.5 M1 PO; +KEFLEX500 M1 PO
== END ==
LOC: M.ULTRA 02-17 13:00
PROVIDERS: ATTEND Podiatrist
DX: I73.9 Peripheral vascular disease, unspecified (principal)

== ENCOUNTER 2021-03-21 11:03 | Inpatient (IN) | payer BC ==
[~2021-03-21] VITALS: Ht 162.6 cm; Wt 72.6 kg
[2021-03-21 11:10] VITALS: BP 160/89
[2021-03-21 11:58] LABS: ABSOLUTE BASOPHILS 0.1 thou/uL (0.0-0.2); ABSOLUTE EOSINOPHILS 0.2 thou/uL (0.0-0.7); ABSOLUTE LYMPHOCYTES 1.1 thou/uL (0.8-5.3); ABSOLUTE MONOCYTES 0.8 thou/uL (0.0-1.2); ABSOLUTE NEUTROPHILS 9.9 thou/uL (1.6-8.1); BASOPHILS 0.6 %; EOSINOPHILS 1.8 %; HEMATOCRIT 39.1 % (37.0-47.0); HEMOGLOBIN 13.2 gm/dL (12.0-15.0); LYMPHOCYTES 9.1 %; MCH 30.3 pg (26.0-34.0); MCHC 33.9 g/dL (28.0-37.0); MCV 89.4 fL (80.0-100.0); MONOCYTES 6.3 %; MPV 7.7 fl. (7.2-11.1); NUCLEATED RBCS 0 /100WBC; PLATELET COUNT* 294 thou/uL (150-400); POLYS 82.2 %; RBC 4.37 mil/uL (4.20-5.00); RDW-CV 15.1 % (10.5-14.5); WBC 12.1 thou/uL (4.0-11.0)
[2021-03-21 12:05] LABS: CALCIUM 8.7 mg/dL (8.5-10.1); CREATININE 1.6 mg/dL (0.6-1.3); POTASSIUM 3.7 mmol/L (3.5-5.1)
[2021-03-21 12:25] LABS: ALBUMIN 3.1 g/dL (3.4-5.0); TOTAL BILIRUBIN 0.4 mg/dL (<0.1-1.0); TOTAL PROTEIN 7.9 g/dL (6.4-8.2)
[2021-03-21 17:51] VITALS: BP 145/69
[2021-03-21 20:00] VITALS: BP 157/73
[2021-03-22 04:42] LABS: HEMATOCRIT 38.5 % (37.0-47.0); HEMOGLOBIN 13.2 gm/dL (12.0-15.0); MCH 30.2 pg (26.0-34.0); MCHC 34.2 g/dL (28.0-37.0); MCV 88.3 fL (80.0-100.0); MPV 7.9 fl. (7.2-11.1); RBC 4.36 mil/uL (4.20-5.00); RDW-CV 14.8 % (10.5-14.5); WBC 12.7 thou/uL (4.0-11.0)
[2021-03-22 04:50] LABS: CALCIUM 8.3 mg/dL (8.5-10.1); CREATININE 1.4 mg/dL (0.6-1.3); POTASSIUM 3.2 mmol/L (3.5-5.1)
--- NOTE | 2021-03-22 04:51 | NUR ---
ASSUMED PT CARE AT 1930. ADMISSION DATABASES COMPLETED, QUESTIONS ANSWERED BY PT AND FAMILY. PT BECAME MORE CONFUSED THE NIGHT PROGRESSED. MOVED FROM ROOM 09 TO ROOM 06 FOR PT SAFETY. PT POUNDING ON THE WALL WITH HER CANE AND CALLING OUT MOST OF THE SHIFT. CLIMBING OUT OF BED AND SETTING OFF THE BED ALARM. PT GOT OUT OF BED IN ROOM 09 AND PULLED HER IV POLE AND PUMP ACROSS THE BED BEFORE STAFF ARRIVED PRECIPITATING MOVE TO ROOM 06. PHOTOGRAPHS OBTAINED OF PT RIGHT BREAST, ABDOMEN, UPPER THIGHS AND PERIANAL AREA. THESE AREAS ARE RED, WEEPING AND EXCORIATED. PER AND SON PATIENT SITS AND SLEEPS IN RECLINER AND NEVER LEAVES HER CHAIR. PT UP MANY TIMES TO VOID. STOOL X1 THIS SHIFT. PT HAS HAD VARIOUS PRN PAIN AND ANXIETY MEDICATIONS. PT POCKETS PILLS AND SPITS THEM OUT IN BED. EVENTUALLY SWALLOWS PILLS WITH CLOSE SUPERVISION AFTER REPEATED ATTEMPTS. PT REMAINS COMBATIVE AND ARGUMENTATIVE. IV INFILTRATED, AWAITING IV NURSE'S ARRIVAL TODAY TO ATTEMPT NEW ACCESS. CALL LIGHT IN REACH, BED ALARM ON FOR SAFETY. HOURLY ROUNDING IN PROGRESS, WILL CONTINUE TO MONITOR.
[2021-03-22 07:52] VITALS: BP 163/93
--- NOTE | 2021-03-22 10:04 | NUR ---
WOUND NURSE: PATIENT SEEN TO ADDRESS RED WEEPING RASH IN PERINEUM, SACRUM, AND LEFT BREAST. PERINEAL RASH EXTENDS INTO ABDOMINAL SKIN FOLDS. YELLOW OPAQUE CREAMY SECRETIONS NOTED WITH PERINEAL RASH. PATIENT REPORTING BURNING SENSATION WITH RASH, BUT REPORTS THIS IMPROVED AFTER TREATMENT WITH NYSTATIN POWDER AND ZINC OXIDE MIXTURE. TX APPROVED BY DR. PARRA AND HE ALSO ORDERED DIFLUCAN FOR THE PATIENT. PATIENT, DAUGHTER, AND INSTRUCTED ON MEASURES TO PROMOTE HEALING AND PREVENT RECURRENCE. THEY STATE THEY UNDERSTAND.
[2021-03-22 16:03] VITALS: BP 151/60
--- NOTE | 2021-03-22 16:09 | NUR ---
CM spoke with Pt's dtr. Pt resides at home with . Baseline confusion. completes iadls. Supportive kids. Pt uses a cane for mobility. Hx of [facility]. No hx of SNF. Therapy evals ordered. Blood and wound cultures pending. Per , anticipate that Pt may need skilled at dc. CM to discuss with family post therapy evals. Anticipate dc in a few days.
--- NOTE | 2021-03-22 17:29 | NUR ---
PT UP WITH CANE AND ASSIST X1. PRN PAIN AND NAUSEA MEDICATIONS GIVEN PER PT REQUEST. PT HAD EMISIS THIS AM. SEEN BY THERAPY. SEEN BY WOUND CARE NURSE. SEE ORDERS. PT BECAME MORE CONFUSED AND DISORIENTED THIS EVENING. FAMILY HERE TO VISIT. FALL PRECAUTIONS IN PLACE. PT SETS BED/CHAIR ALARM OFF FREQUENTLY. DOES NOT REMEMBER TO USE THE CALL LIGHT. CALL LIGHT IN REACH.
[2021-03-22 20:00] VITALS: BP 114/44
--- NOTE | 2021-03-23 04:04 | NUR ---
PT A&O X 3-4, FORGETFUL AT TIMES. VSS ON RA. MEDS GIVEN ORDERED. MORPHINE GIVEN X 1 FOR PAIN. UP TO THE BSC WITH ASSIST. CALL LIGHT WITHIN REACH. WILL CONTINUE TO MONITOR.
[2021-03-23 08:00] VITALS: BP 129/66
--- NOTE | 2021-03-23 14:12 | NUR ---
Anticipate dc in a few days. Family wanting HH over SNF. Therapies following. Continue on ivabx
[2021-03-23 16:00] VITALS: BP 146/65
--- NOTE | 2021-03-23 18:07 | NUR ---
PT PROGRESSING DISCHARGE GOALS. ABD AND UNDER BREAT HEALING GOOD. SEVERAL PLACES UNDER PANIS IS REDDENED AND A LITTLE BLOODY. PT UP IN ROOM AMBULATING AROUND ROOM WITH ASSISTANCE. IV FLUDIS INFUSING AND SCHEDULED ANTIBIOTICS GIVEN AT THE CORRECT TIMES. VSS AFEBRILE. MORPHINE HOLDING PAIN WELL. FROM PT FAMILY THEY ALL STATE SHE LOOKS BETTER. WELL RESTED. WILL CONTINUE TO MONITOR PLAN OF CARE.
[2021-03-23 20:00] VITALS: BP 135/75
[2021-03-24 04:13] LABS: HEMOGLOBIN 11.9 gm/dL (12.0-15.0); MCH 30.7 pg (26.0-34.0); MCHC 34.1 g/dL (28.0-37.0); MCV 89.9 fL (80.0-100.0); MPV 7.7 fl. (7.2-11.1); RBC 3.89 mil/uL (4.20-5.00); RDW-CV 14.9 % (10.5-14.5); WBC 7.9 thou/uL (4.0-11.0)
[2021-03-24 04:24] LABS: CALCIUM 8.2 mg/dL (8.5-10.1); CREATININE 1.3 mg/dL (0.6-1.3); POTASSIUM 3.7 mmol/L (3.5-5.1)
--- NOTE | 2021-03-24 04:33 | NUR ---
PATIENT HAS REMAINED ALERT AND ORIENTED X 4 WITH FORGETFULNESS THROUGHOUT THE SHIFT AND RESTING QUIETLY ON HOURLY ROUNDS. UP TO BSC WITH MIN ASSIST OF ONE AND WALKER. DOES HAVE URINARY HESITANCY. IV SITE CHANGED DUE TO INFILTRATION. MEDICATED FOR BACK PAIN X 2 TO GOOD EFFECT. ANTIBIOTICS PER ORDER. FALL PRECAUTIONS IN PLACE. CONTINUE TO MONITOR.
--- NOTE | 2021-03-24 13:01 | NUR ---
Pt will be medically stable to dc tomorrow to skilled. Tom JARRETT working insurance auth, they will let CM know if auth is received by end of day tomorrow. Family in agreement with POC. Tom JARRETT p:[phone] [phone]
--- NOTE | 2021-03-24 15:36 | NUR ---
WOUND NURSE: PATIENT SEEN FOR FOLLOW UP ASSESMENT PERTAINING TO INTERTRIGO AND FUNGAL INFECTION. TREMENDOUS IMPROVEMENT IN AFFECTED AREAS. NOW LIGHT PINK IN COLOR ADN PATIENT STATED NO LONGER CAUSING PAIN. THERE IS 2 AREAS ON ABDOMINAL PANNUS WITH EROSIONS AND WEEPING SEROUS DRAINAGE. THIS WAS SCABBED OVER WHEN INTITIALLY SEEN BY THIS NURSE. CLEANSED WITH SOAP AND WATER, RINSED, THEN PATTED DRY. APPLIED CRUSTING USING SKIN PREP AND NYSTATIN POWDERX 3 LAYERS TO THE AFFECTED AREAS. APPLIED AQUACEL AG WHEN WEEPING, THEN COVERED WITH EXUDERM LP. ATTEMPTED TO PHOTOGRAPH ABD PANNUS PRIOR DRESSING WOUND, BUT NOTED CAMERA FAILURE AFTER WOUND WAS DRESSED. WILL OBTAIN PHOTO OF THIS AREA WITH FOLLOW UP ON SATURDAY.
--- NOTE | 2021-03-24 18:41 | NUR ---
Pt remained A&O x4 for entire shift. Pt pleasant with staff, vital signs stable. Pt complains of back pain but notes that new medication has helped today. Pt up to chair for part of the day. Pt walks to bathroom with steady gait using walker. Bed in low position, bed/chair alarm on, call light within reach.
[2021-03-24 20:40] VITALS: BP 163/87
[2021-03-25 05:25] LABS: HEMATOCRIT 35.4 % (37.0-47.0); MCH 30.5 pg (26.0-34.0); MCHC 33.9 g/dL (28.0-37.0); MCV 89.8 fL (80.0-100.0); MPV 7.6 fl. (7.2-11.1); RBC 3.94 mil/uL (4.20-5.00); RDW-CV 15.2 % (10.5-14.5); WBC 7.3 thou/uL (4.0-11.0)
[2021-03-25 06:04] LABS: CALCIUM 8.1 mg/dL (8.5-10.1); CREATININE 1.2 mg/dL (0.6-1.3)
--- NOTE | 2021-03-25 06:25 | NUR ---
PT HAS BEEN VERY RESTLESS THIS PM COMPLAINING OF STOMACH PAIN THAT RADIATES FROM THE RLQ AROUND TO BACK. SHE STATES SHE HAS NOT HAD A BM FOR APPROX 4 DAYS AND BISCOYDL WAS GIVEN LAST PM. PT HAD KLONOPIN AND ATIVAN FOR ANXIETY WITH MINIMAL SLEEP. SHE KEEPS REQUESTING HER "PAIN PILL" BUT ONLY HAS TYLENOL AND THIS HAS BEEN GIVEN Q4 HRS. ZOFRAN WAS GIVEN TO SEE IF IT IS NAUSEA SHE IS EXPERIENCING, THIS DID HELP HER REST A BIT. SHE HAS BEEN UP TO TOILET 3-4 TIMES WITH NO BM RESULT. VOIDING APPROPRIATELY. IVF AND ANTIBIOTICS PER ORDER. ZINC AND FUNGAL CREAM APPLIED TO NESSA/PANNUS, AND BREAST AREAS. BED ALARM ON FOR SAFETY, CALL LIGHT WITHIN REACH.
[2021-03-25 07:50] VITALS: BP 137/74
[2021-03-25 16:22] LABS: URINE BILIRUBIN NEGATIVE (Negative); URINE BLOOD NEGATIVE (Negative); URINE CLARITY CLEAR; URINE COLOR YELLOW; URINE GLUCOSE-RANDOM NEGATIVE (Negative); URINE KETONES NEGATIVE (Negative); URINE LEUKOCYTES-REFLEX NEGATIVE (Negative); URINE NITRITE-REFLEX NEGATIVE (Negative); URINE PROTEIN NEGATIVE (Negative); URINE UROBILINOGEN 0.2 E.U./dl (0.2-1.0)
[2021-03-25 16:43] VITALS: BP 183/82
[2021-03-25 20:15] VITALS: BP 175/74
--- NOTE | 2021-03-26 05:24 | NUR ---
PATIENT AWAKE OFF AND ON THROUGHOUT THE NIGHT. PT IS ALERT/ORIENTED X3; CONFUSED AND FORGETFUL. PT REQUESTED PAIN MEDICATION THEN WOULD ASK FOR IT 30 MIN LATER FORGETTING SHE HAD JUST RECEIVED MEDS. PT GIVEN PERCOCET X3 DURING THIS SHIFT. PT UP TO BATHROOM WITH G.BELT, WALKER AND CLOSE STANDBY. PT ON RA AT THIS TIME. FLUIDS INFUSING IN LT UPPER ARM PER DR ORDER. FREQUENTLY USED ITEMS AND CALL LIGHT WITHIN REACH. SIDERAILS UPX3 AND BED ALARM ON. FREQUENT OBSERVATIONS MADE. WILL CONTINUE TO MONITOR.
[2021-03-26 05:42] LABS: HEMATOCRIT 37.2 % (37.0-47.0); HEMOGLOBIN 12.6 gm/dL (12.0-15.0); MCH 30.4 pg (26.0-34.0); MCHC 33.9 g/dL (28.0-37.0); MCV 89.9 fL (80.0-100.0); MPV 7.3 fl. (7.2-11.1); RBC 4.13 mil/uL (4.20-5.00); WBC 6.8 thou/uL (4.0-11.0)
[2021-03-26 05:58] LABS: CALCIUM 8.6 mg/dL (8.5-10.1); CREATININE 1.2 mg/dL (0.6-1.3); POTASSIUM 3.8 mmol/L (3.5-5.1)
[2021-03-26 07:53] VITALS: BP 175/83
[2021-03-26] MEDS ORDERED: FLUCONAZOLE 10100 MG PO (12:15)
[2021-03-26] MEDS ORDERED: NYAMYC15 GM TOP (12:15)
[2021-03-26] MEDS ORDERED: AMOX TR-K CLV1 EAC3 PO (12:15)
[2021-03-26] MEDS ORDERED: DULCOLAX5 MG PO (12:15)
[2021-03-26] MEDS ORDERED: ZINC OXIDE TOP (12:15)
--- NOTE | 2021-03-26 15:43 | NUR ---
PER REQUEST OF OFFICE MACHINE REPAIR SHOP SUPERVISOR, THIS NURSE CONTACTED PATIENT'S DAUGHTER, MARQUEZ, TO INFORM THAT [facility] DOES NOT HAVE A BED FOR THE PATIENT AT THIS TIME AND THAT CM WILL BE WORKING ON IT IN THE MORNING AND WILL CONTACT HER BACK WITH ANY NEW INFORMATION. MARQUEZ VERBALIZES UNDERSTANDING AND APPRECIATES THE PHONE CALL.
[2021-03-26 16:17] VITALS: BP 154/76
--- NOTE | 2021-03-26 18:44 | NUR ---
PATIENT HAS REMAINED A&OX4 HOWEVER FORGETFUL AND CONFUSED AT TIMES DURING SHIFT BUT IS EASILY REDIRECTED. PATIENT HAS C/O LESS PAIN THAN PREVIOUS SHIFT AND HAS SLEP A LARGE PART OF THE SHIFT. PATIENT HAS NO IV ACCESS, DR. COONEY NOTIFIED AND IS OK WITH ANOTHER NOT BEING PLACE PATIENT IS AWAITING PLACEMENT. ANTIBIOTICS CHANGED TO PO. MEDICATIONS ADMINISTERED ORDERED. PATIENT CURRENTLY LYING IN BED WITH EYES CLOSED, APPEARS TO BE SLEEPING WITH NO DISTRESS NOTED. BED ALARM ON FOR PATIENT SAFETY. CALL LIGHT AND FREQUENTLY USED ITEMS WITHIN REACH.
[2021-03-26 20:24] VITALS: BP 181/79
--- NOTE | 2021-03-27 04:51 | NUR ---
PATIENT SLEPT WELL DURING THIS SHIFT. PT USES CALL LIGHT APPROPRIATELY FOR ASSISTANCE TO BATHROOM; VOIDS YELLOW URINE. PT HAS NO IV ACCESS AT THIS TIME; HAS CHANGED ANTIBIOTICS TO PO. PT REQUESTED PAIN MEDICATION AND RECEIVED PERCOCET X3 AND SLEPT AFTER RECEIVING. PT WITH SKIN BREAKDOWN UNDER BREASTS, SACRUM AND PANNUS AREA. ZINC OXIDE AND NYSTATIN APPLIED. FREQUENTLY USED ITEMS AND CALL LIGHT WITHIN REACH. SIDERAILS UPX3 AND BED ALARM ON. WILL CONTINUE TO MONITOR.
[2021-03-27 08:17] VITALS: BP 141/83
[2021-03-27 09:23] VITALS: BP 141/83
--- NOTE | 2021-03-27 09:27 | NUR ---
WOUND NURSE: PATIENT SEEN FOR FOLLOW UP ASSESSMENT OF FUNGAL RASH. LEFT BREAST FADED TO LIGHT PINK AND NO BREAKDOWN OR EXCORIATION. PERINEUM AND SACRUM WITHOUT BREAKDOWN AND FADED TO LIGHT PINK. ABDOMINAL PANNUS WITH LESS EXCORIATION AND OPEN AREAS NOW MEASURING FOLLOWS: LT 1.0 X 4.0 X 0.1 CM. RT 2.0 X 4.5 X 0.1. RIGHT PANNUS ALMOST HEALED WITH SIGNIFICANT EPITHELIAL TISSUE IN THE MEASURED AREA AND SIMILAR ON THE LEFT. ANTICIPATE THIS COULD BE CLOSED WITHIN THE NEXT WEEK. DISCONTINUED ZINC OXIDE AND PLAN TO USE NYSTATIN POWDER Q SHIFT TO PERINEUM, SACRUM, LT BREAST. WILL CONTINUE SAME DRESSING CHANGE TO ABD PANNUS UNTIL CLOSED. PATIENT REINSTRUCTED ON MEASURES TO PROMOTE HEALING AND PREVENT COMPLICATING FACTORS WITH GOOD UNDERSTANDING ACHIEVED.
--- NOTE | 2021-03-27 11:59 | NUR ---
Pt discharging to [facility] today, facility to pick remover and transport between 2-230pm. Updated Pt's dtr. Faxed dc orders. Chart copied. Nurse report number is [phone]
--- NOTE | 2021-03-27 15:19 | NUR ---
PT DISCHARGED ABOUT 1420 BY WHEEL CHAIR VAN TO [facility]. NO IV. PT STABLE. PERSONAL ITEMS SENT WITH PT.
== END 2021-03-27 15:20 | DRG 606 ==
LOC: M.ERS 11:03 → M.ORTHSURG 13:33 → M.TBA-ER 13:33 → M.3W 13:33 → M.ORTHSURG 18:03 → M.3W 03-24 19:00
PROVIDERS: Emergency Medicine; Internal Medicine; ADMIT Family Medicine; ATTEND Family Medicine
DX: L30.4 Erythema intertrigo (principal); N17.0 Acute kidney failure with tubular necrosis; L03.312 Cellulitis of back [any part except buttock and flank]; E87.1 Hypo-osmolality and hyponatremia; M48.56XA Collapsed vertebra, not elsewhere classified, lumbar region, initial encounter for fracture; L03.311 Cellulitis of abdominal wall; G25.81 Restless legs syndrome; F41.9 Anxiety disorder, unspecified; F32.9 Major depressive disorder, single episode, unspecified; I10 Essential (primary) hypertension; E11.9 Type 2 diabetes mellitus without complications; Z20.822 Contact with and (suspected) exposure to COVID-19; Z90.49 Acquired absence of other specified parts of digestive tract; Z90.710 Acquired absence of both cervix and uterus; Z98.49 Cataract extraction status, unspecified eye; Z79.899 Other long term (current) drug therapy; Z88.5 Allergy status to narcotic agent; Z88.2 Allergy status to sulfonamides; Z88.8 Allergy status to other drugs, medicaments and biological substances

== ENCOUNTER 2021-03-28 23:59 | Inpatient (IN) | payer BC ==
[~2021-03-28] VITALS: Ht 162.6 cm; Wt 76.4 kg
[~2021-03-28 23:59] MED LIST changes: +AMOX TR-K CLV1 EAC3 PO; +DULCOLAX5 MG PO; +FLUCONAZOLE 10100 MG PO; +NYAMYC15 GM TOP; +ZINC OXIDE TOP
[2021-03-29] VITALS (8 sets, daily range): BP systolic 103–138; BP diastolic 48–76
[2021-03-29] MEDS ORDERED: TRAMADOL 50 MG50 MG PO (00:18)
[2021-03-29] MEDS ORDERED: ACETAMINOPHEN325 M1 PO (00:18)
[2021-03-29 00:53] LABS: HEMATOCRIT 48.3 % (37.0-47.0); MCH 29.8 pg (26.0-34.0); MCHC 33.3 g/dL (28.0-37.0); MCV 89.3 fL (80.0-100.0); MPV 7.8 fl. (7.2-11.1); NUCLEATED RBCS 0 /100WBC; RBC 5.41 mil/uL (4.20-5.00); RDW-CV 15.9 % (10.5-14.5)
[2021-03-29 00:54] LABS: CALCIUM 9.8 mg/dL (8.5-10.1); POTASSIUM 5.6 mmol/L (3.5-5.1)
[2021-03-29 00:58] LABS: ALBUMIN 2.7 g/dL (3.4-5.0); TOTAL BILIRUBIN 0.9 mg/dL (<0.1-1.0); TOTAL PROTEIN 8.1 g/dL (6.4-8.2)
[2021-03-29 01:01] LABS: HEMOGLOBIN 16.1 gm/dL (12.0-15.0)
[2021-03-29 01:06] LABS: PLATELET COUNT* 397 thou/uL (150-400)
[2021-03-29 01:07] LABS: CREATININE 2.6 mg/dL (0.6-1.3)
[2021-03-29 01:12] LABS: WBC 44.1 thou/uL (4.0-11.0)
[2021-03-29 02:22] LABS: ABSOLUTE LYMPHOCYTES 2.6 thou/uL (0.8-5.3); ABSOLUTE MONOCYTES 0.4 thou/uL (0.0-1.2); PLATELET ESTIMATE ADEQUATE
[2021-03-29 15:36] LABS: HEMATOCRIT 41.4 % (37.0-47.0); MCH 29.9 pg (26.0-34.0); MCHC 33.4 g/dL (28.0-37.0); MCV 89.5 fL (80.0-100.0); MPV 7.5 fl. (7.2-11.1); RBC 4.63 mil/uL (4.20-5.00); RDW-CV 15.6 % (10.5-14.5); WBC 38.1 thou/uL (4.0-11.0)
[2021-03-29 15:37] LABS: HEMOGLOBIN 13.8 gm/dL (12.0-15.0)
[2021-03-29 15:51] LABS: CALCIUM 8.6 mg/dL (8.5-10.1); CREATININE 2.2 mg/dL (0.6-1.3)
[2021-03-29 15:52] LABS: POTASSIUM 4.3 mmol/L (3.5-5.1)
--- NOTE | 2021-03-29 16:28 | EKG ---
[place] [address] ELECTROCARDIOGRAM REPORT Name: ANTONIA SQUIRES Room: [address] ADM IN M.R.#: [id number] Admission: 03/29/21 Attend Phys: Pepe Grier Discharge: Date of : 35 Date of Service: 03/29/21 0005 Report #: [id number] THIS REPORT FOR: //name// [facility] ED Test Date: 2021-03-29 Test Time: 00:05:02 Pat Name: ANTONIA SQUIRES Department: Room: [facility] Gender: F Envelope Adjuster: CT : 1935 Requested By: Zaynab Palacio Order Number: [id number] MD: Yogi Cuello Measurements Intervals [place] Rate: 72 P: 72 [place]: 168 QRS: -63 QRSD: 82 T: 63 QT: 361 QTc: 396 Interpretive Statements Sinus rhythm Probable left atrial enlargement Left ventricular hypertrophy Inferior infarct, old Anterior infarct, old Compared to ECG 02/26/2020 09:19:07 Left ventricular hypertrophy now present Myocardial infarct finding now present Electronically Signed On 03-29-2021 16:28:14 CDT by Yogi Cuello [email or web address] <ELECTRONICALLY SIGNED> By: Yogi Cuello MD, [facility] 03/29/21 1628 0005 0005 Yogi Cuello MD, [facility] /EPI
[2021-03-30 03:56] LABS: CALCIUM 8.1 mg/dL (8.5-10.1); CREATININE 2.2 mg/dL (0.6-1.3); POTASSIUM 3.8 mmol/L (3.5-5.1)
[2021-03-30 04:00] VITALS: BP 109/44
[2021-03-30 04:00] LABS: HEMATOCRIT 38.3 % (37.0-47.0); HEMOGLOBIN 12.7 gm/dL (12.0-15.0); MCHC 33.1 g/dL (28.0-37.0); MCV 90.5 fL (80.0-100.0); RBC 4.23 mil/uL (4.20-5.00); RDW-CV 15.8 % (10.5-14.5); WBC 32.4 thou/uL (4.0-11.0)
[2021-03-30 08:00] VITALS: BP 115/49
[2021-03-30 12:00] VITALS: BP 113/44
[2021-03-30 16:00] VITALS: BP 113/54
[2021-03-30 20:00] VITALS: BP 105/46
[2021-03-31] VITALS: BP 133/58
[2021-03-31 04:00] VITALS: BP 122/59
[2021-03-31 05:30] LABS: ABSOLUTE BASOPHILS 0.1 thou/uL (0.0-0.2); ABSOLUTE LYMPHOCYTES 1.1 thou/uL (0.8-5.3); ABSOLUTE NEUTROPHILS 23.3 thou/uL (1.6-8.1); BASOPHILS 0.3 %; EOSINOPHILS 0.2 %; HEMATOCRIT 33.2 % (37.0-47.0); HEMOGLOBIN 10.9 gm/dL (12.0-15.0); LYMPHOCYTES 4.4 %; MCH 29.5 pg (26.0-34.0); MCHC 32.9 g/dL (28.0-37.0); MCV 89.7 fL (80.0-100.0); MONOCYTES 3.9 %; MPV 7.8 fl. (7.2-11.1); NUCLEATED RBCS 0 /100WBC; PLATELET COUNT* 235 thou/uL (150-400); POLYS 91.2 %; RDW-CV 15.7 % (10.5-14.5); WBC 25.5 thou/uL (4.0-11.0)
[2021-03-31 05:40] LABS: ALBUMIN 1.5 g/dL (3.4-5.0); CALCIUM 7.8 mg/dL (8.5-10.1); CREATININE 1.4 mg/dL (0.6-1.3); MAGNESIUM 2.3 mg/dL (1.8-2.4); PHOSPHORUS* 2.7 mg/dL (2.5-4.9); TOTAL BILIRUBIN 0.4 mg/dL (<0.1-1.0); TOTAL PROTEIN 5.6 g/dL (6.4-8.2)
[2021-03-31 05:43] LABS: POTASSIUM 2.9 mmol/L (3.5-5.1)
[2021-03-31 08:00] VITALS: BP 129/60
[2021-03-31 12:00] VITALS: BP 115/56
[2021-03-31 16:00] VITALS: BP 103/57
[2021-03-31 20:00] VITALS: BP 144/56
[2021-04-01] VITALS: BP 147/56
[2021-04-01 04:00] VITALS: BP 155/63
[2021-04-01 08:00] VITALS: BP 152/76
[2021-04-01 08:45] LABS: ABSOLUTE EOSINOPHILS 0.2 thou/uL (0.0-0.7); ABSOLUTE LYMPHOCYTES 1.3 thou/uL (0.8-5.3); ABSOLUTE MONOCYTES 0.8 thou/uL (0.0-1.2); ABSOLUTE NEUTROPHILS 13.9 thou/uL (1.6-8.1); BASOPHILS 0.2 %; EOSINOPHILS 1.4 %; HEMOGLOBIN 11.1 gm/dL (12.0-15.0); MCHC 33.7 g/dL (28.0-37.0); MONOCYTES 4.7 %; MPV 7.8 fl. (7.2-11.1); NUCLEATED RBCS 0 /100WBC; PLATELET COUNT* 248 thou/uL (150-400); POLYS 85.7 %; RDW-CV 15.5 % (10.5-14.5); WBC 16.2 thou/uL (4.0-11.0)
[2021-04-01 09:06] LABS: ALBUMIN 1.7 g/dL (3.4-5.0); CALCIUM 7.6 mg/dL (8.5-10.1); CREATININE 0.8 mg/dL (0.6-1.3); MAGNESIUM 1.8 mg/dL (1.8-2.4); PHOSPHORUS* 1.6 mg/dL (2.5-4.9); POTASSIUM 3.2 mmol/L (3.5-5.1); TOTAL BILIRUBIN 0.4 mg/dL (<0.1-1.0)
[2021-04-01 12:00] VITALS: BP 171/81
[2021-04-01 16:00] VITALS: BP 147/67
[2021-04-01 20:00] VITALS: BP 162/55
[2021-04-02] VITALS: BP 167/78
[2021-04-02 04:00] VITALS: BP 174/63
[2021-04-02 04:58] LABS: HEMOGLOBIN 11.9 gm/dL (12.0-15.0); MCH 29.7 pg (26.0-34.0); MCHC 33.2 g/dL (28.0-37.0); MCV 89.5 fL (80.0-100.0); MPV 7.6 fl. (7.2-11.1); RBC 4.02 mil/uL (4.20-5.00); WBC 13.6 thou/uL (4.0-11.0)
[2021-04-02 05:11] LABS: CALCIUM 7.8 mg/dL (8.5-10.1); CREATININE 0.8 mg/dL (0.6-1.3)
[2021-04-02 05:13] LABS: POTASSIUM 2.9 mmol/L (3.5-5.1)
[2021-04-02 08:00] VITALS: BP 156/68
[2021-04-02 12:00] VITALS: BP 153/68
[2021-04-02 16:00] VITALS: BP 148/72
[2021-04-02 20:00] VITALS: BP 153/70
[2021-04-03] VITALS: BP 165/79
[2021-04-03 03:45] VITALS: BP 167/72
[2021-04-03 04:55] LABS: HEMATOCRIT 36.3 % (37.0-47.0); HEMOGLOBIN 12.2 gm/dL (12.0-15.0); MCH 29.6 pg (26.0-34.0); MCHC 33.5 g/dL (28.0-37.0); MCV 88.5 fL (80.0-100.0); MPV 7.6 fl. (7.2-11.1); RBC 4.1 mil/uL (4.20-5.00); RDW-CV 15.3 % (10.5-14.5)
[2021-04-03 05:13] LABS: CALCIUM 7.4 mg/dL (8.5-10.1); CREATININE 0.8 mg/dL (0.6-1.3); POTASSIUM 3.4 mmol/L (3.5-5.1)
[2021-04-03 09:00] VITALS: BP 108/52
[2021-04-03 12:00] VITALS: BP 193/84
[2021-04-03 16:00] VITALS: BP 181/91
[2021-04-03 19:55] VITALS: BP 160/82
[2021-04-04 00:17] VITALS: BP 139/74
[2021-04-04 04:49] VITALS: BP 181/85
[2021-04-04 04:56] LABS: ABSOLUTE EOSINOPHILS 0.3 thou/uL (0.0-0.7); ABSOLUTE LYMPHOCYTES 1.5 thou/uL (0.8-5.3); ABSOLUTE NEUTROPHILS 6.8 thou/uL (1.6-8.1); BASOPHILS 0.4 %; EOSINOPHILS 2.8 %; HEMOGLOBIN 12.3 gm/dL (12.0-15.0); LYMPHOCYTES 15.3 %; MCHC 34.2 g/dL (28.0-37.0); MCV 87.7 fL (80.0-100.0); MONOCYTES 10.7 %; MPV 7.4 fl. (7.2-11.1); NUCLEATED RBCS 0 /100WBC; PLATELET COUNT* 298 thou/uL (150-400); POLYS 70.8 %; RBC 4.11 mil/uL (4.20-5.00); RDW-CV 15.4 % (10.5-14.5); WBC 9.7 thou/uL (4.0-11.0)
[2021-04-04 05:44] LABS: CALCIUM 7.8 mg/dL (8.5-10.1); CREATININE 0.7 mg/dL (0.6-1.3); MAGNESIUM 1.6 mg/dL (1.8-2.4); PHOSPHORUS* 1.8 mg/dL (2.5-4.9)
[2021-04-04 06:11] LABS: POTASSIUM 2.8 mmol/L (3.5-5.1)
[2021-04-04 08:00] VITALS: BP 162/79
[2021-04-04 12:00] VITALS: BP 174/90
[2021-04-04 13:12] LABS: CALCIUM 7.6 mg/dL (8.5-10.1); CREATININE 0.8 mg/dL (0.6-1.3); POTASSIUM 3.4 mmol/L (3.5-5.1)
[2021-04-04 16:00] VITALS: BP 169/84
[2021-04-05] VITALS: BP 167/74
[2021-04-05 04:00] VITALS: BP 170/70
[2021-04-05 04:47] LABS: HEMATOCRIT 36.2 % (37.0-47.0); HEMOGLOBIN 12.5 gm/dL (12.0-15.0); MCHC 34.5 g/dL (28.0-37.0); MCV 86.9 fL (80.0-100.0); MPV 7.4 fl. (7.2-11.1); NUCLEATED RBCS 0 /100WBC; PLATELET COUNT* 341 thou/uL (150-400); RBC 4.17 mil/uL (4.20-5.00); RDW-CV 15.9 % (10.5-14.5)
[2021-04-05 05:04] LABS: CALCIUM 7.9 mg/dL (8.5-10.1); CREATININE 0.8 mg/dL (0.6-1.3); MAGNESIUM 1.9 mg/dL (1.8-2.4); PHOSPHORUS* 1.7 mg/dL (2.5-4.9); POTASSIUM 3.4 mmol/L (3.5-5.1)
[2021-04-05 06:57] LABS: ABSOLUTE BASOPHILS 0.1 thou/uL (0.0-0.2); ABSOLUTE EOSINOPHILS 0.1 thou/uL (0.0-0.7); ABSOLUTE LYMPHOCYTES 0.6 thou/uL (0.8-5.3); ABSOLUTE MONOCYTES 0.8 thou/uL (0.0-1.2); ABSOLUTE NEUTROPHILS 6.4 thou/uL (1.6-8.1); METAMYELOCYTES 5 %; MYELOCYTES 1 %; PLATELET ESTIMATE ADEQUATE
[2021-04-05 08:10] VITALS: BP 151/62
[2021-04-05] MEDS ORDERED: AUGMENTIN 875-1 EACH PO (09:18)
[2021-04-05] MEDS ORDERED: HYDROCODON-ACE1 EAC7 PO ×2 (09:18→09:25)
[2021-04-05] MEDS ORDERED: OXYCODONE20 MG/1 ML SUBLING ×2 (09:18→09:25)
[2021-04-05] MEDS ORDERED: CLONAZEPAM 0.50.5 M1 PO (09:24)
[2021-04-05 12:00] VITALS: BP 137/77
[2021-04-05 16:00] VITALS: BP 140/64
[2021-04-05 20:00] VITALS: BP 152/66
[2021-04-06 00:44] VITALS: BP 173/73
[2021-04-06 04:50] VITALS: BP 117/69
[2021-04-06 08:00] VITALS: BP 172/78
[2021-04-06 12:00] VITALS: BP 165/71
[2021-04-06 13:11] LABS: CALCIUM 8.1 mg/dL (8.5-10.1); CREATININE 1.1 mg/dL (0.6-1.3); POTASSIUM 3.9 mmol/L (3.5-5.1)
== END 2021-04-06 14:30 | DRG 871 ==
LOC: M.ERS 23:59 → M.2W 03-29 04:47 → M.TBA-ER 03-29 04:47 → M.2W 03-29 13:30 → M.ORTHSURG 03-30 13:16 → M.2W 03-30 15:06
PROVIDERS: Emergency Medicine; Family Medicine; Surgery; ADMIT Internal Medicine; ATTEND Internal Medicine
DX: A41.9 Sepsis, unspecified organism (principal); G93.41 Metabolic encephalopathy; N17.0 Acute kidney failure with tubular necrosis; E87.1 Hypo-osmolality and hyponatremia; M48.56XA Collapsed vertebra, not elsewhere classified, lumbar region, initial encounter for fracture; K56.7 Ileus, unspecified; E87.5 Hyperkalemia; E87.6 Hypokalemia; K52.9 Noninfective gastroenteritis and colitis, unspecified; E66.01 Morbid (severe) obesity due to excess calories; L30.9 Dermatitis, unspecified; F41.9 Anxiety disorder, unspecified; F32.9 Major depressive disorder, single episode, unspecified; G25.81 Restless legs syndrome; R65.20 Severe sepsis without septic shock; E11.9 Type 2 diabetes mellitus without complications; I10 Essential (primary) hypertension; Z20.822 Contact with and (suspected) exposure to COVID-19; Z90.49 Acquired absence of other specified parts of digestive tract; Z79.899 Other long term (current) drug therapy; Z88.5 Allergy status to narcotic agent; Z90.710 Acquired absence of both cervix and uterus; Z88.2 Allergy status to sulfonamides; Z88.8 Allergy status to other drugs, medicaments and biological substances; Z68.28 Body mass index [BMI] 28.0-28.9, adult

== ENCOUNTER 2021-04-15 14:17 | Inpatient (IN) | payer BC ==
[~2021-04-15] VITALS: Ht 162.6 cm; Wt 73.0 kg
--- NOTE | ~2021-04-15 | CON ---
[address] [address] CONSULTATION Name: ANTONIA SQUIRES Room: [place] [address] ADM IN .R.#: [id number] Admission: 04/15/21 Attend Phys: Miranda Aguirre MD Discharge: Date of : 35 Report #: [id number] THIS REPORT FOR: cc: Abhi Johnston Russell J. DO Vasudeva, Amita MD ~ DATE OF CONSULTATION: 04/16/2021 NEPHROLOGY CONSULTATION CONSULTING PHYSICIAN: Miranda Aguirre MD REASON FOR NEPHROLOGY CONSULTATION: Acute kidney injury. REASON FOR ADMISSION: Confusion. HISTORY OF PRESENT ILLNESS: This is an 86-year-old female who was brought in because of confusion and abnormal labs. She was recently admitted for increased inflammation of intertrigo, discharged on antibiotics to a rehab on 03/26 and came back on 03/29 with colitis and then discharged back to ____ on 04/05. She was found to have a creatinine of 4.0 on admission this time, potassium of 6.0. Home medications include meloxicam, potassium at home as well as Lasix. The patient was extremely dry. Her potassium and creatinine both are improving with IV fluids. She was still confused for me this morning. Chest x-ray also showed evidence of possible left basilar infiltrate. Baseline creatinine is 1.1 on 04/06. She woke up for me, but she seems to be disoriented. REVIEW OF SYSTEMS: As mentioned in history of present illness. Otherwise, a detailed review of systems not possible because of her confusion. ALLERGIES: SULFA, LISINOPRIL, CODEINE AND PREDNISONE. PAST MEDICAL AND SURGICAL HISTORY: Includes hysterectomy, tonsillectomy, right benign breast biopsy, left knee surgery, cholecystectomy, restless leg syndrome, anxiety, hypertension, diabetes type 2, depression, cataract surgery, diagnosed with cellulitis and required second metatarsal amputation and found to have source of the sepsis in 02/2020. HOME MEDICATIONS: Include Augmentin, clonazepam, hydrocodone/acetaminophen, oxycodone, amlodipine, fluconazole, bisacodyl, nystatin, zinc oxide, Lasix 40 mg a day, methylprednisolone, meloxicam 7.5 mg once a day, potassium, Nexium, cimetidine, ciprofloxacin. PHYSICAL EXAMINATION: VITAL SIGNS: Blood pressure is 124/49, pulse rate was 83, temperature was 36.7, [place] [address] CONSULTATION Name: ANTONIA SQUIRES Room: [address] IN [facility]#: [id number] Admission: 04/15/21 Attend Phys: Miranda Aguirre MD Discharge: Date of : 35 Report #: [id number] respiratory rate was 20, pulse ox was 99% on room air. GENERAL: She is arousable, but she was confused. HEAD AND EYES: Atraumatic and normocephalic. Conjunctivae normal. EARS, NOSE AND THROAT: Normal ears and nose. Mucous membranes are dry. NECK: No JVD. CHEST: Bilaterally clear to auscultation. No crackles or wheezing. CARDIOVASCULAR: S1, S2 normal. No murmurs. ABDOMEN: Soft, nondistended, nontender. LOWER EXTREMITIES: There is no edema. NEUROLOGICAL FUNCTION. She seems to be confused and moving all her extremities. PSYCHIATRIC: Unable to assess. LABORATORY DATA: Hemoglobin is 10.9, WBC 9.3, platelet count was 375. Sodium was 143; potassium was 5.3, which is down from 6.0; CO2 was 22; BUN was 51; creatinine was 3.3, down from 4.0 and glucose was 55. Other labs were reviewed. IMAGING: Chest x-ray was reviewed. ASSESSMENT: 1. Acute kidney injury in the setting of intravascular volume depletion, use of meloxicam and Lasix at home. There is no need for renal ultrasound because her creatinine is getting better with IV fluids and after holding offending medications. UA showed 1+ protein, ketones and no blood. 2. Confusion, could be because of dehydration and acute kidney injury. 3. Hyperkalemia in the setting of dehydration, acute kidney injury, potassium and meloxicam use. 4. Her baseline creatinine is 1.1. 5. Left basilar pneumonia. We will defer to Internal Medicine for management. 6. Known L1 compression fracture. PLAN: 1. Her labs are improving with IV fluids. Continue IV fluids for now and she should be on low potassium diet. 2. Continue to hold potassium, Lasix and should avoid all NSAIDs on her. 3. No need for renal ultrasound since her labs are getting better with IV fluids alone. 4. Check morning labs. Thank you for this consultation. We will follow with you. Could not discuss [address] [address] CONSULTATION Name: ANTONIA SQUIRES Room: [address] IN M.R.#: [id number] Admission: 04/15/21 Attend Phys: Miranda Aguirre MD Discharge: Date of : 35 Report #: [id number] with the patient and could not discuss with the patient's nurse because I could find her. By: 0747 [id number] Allan MD /nt
[~2021-04-15 14:17] MED LIST changes: +ACETAMINOPHEN325 M1 PO; +AUGMENTIN 875-1 EACH PO; +OXYCODONE20 MG/1 ML SUBLING
[2021-04-15 14:22] VITALS: BP 116/58
[2021-04-15] MEDS ORDERED: CIPRO250 M2 PO (14:32)
[2021-04-15] MEDS ORDERED: SUPER THERAVIT1 EACH PO (14:33)
[2021-04-15] MEDS ORDERED: MEDROLDOSEPACK PO (14:33)
[2021-04-15] MEDS ORDERED: NEXIUM 40 MG CA40 M1 PO (14:33)
[2021-04-15 15:01] LABS: ABSOLUTE BASOPHILS 0.1 thou/uL (0.0-0.2); ABSOLUTE LYMPHOCYTES 1.6 thou/uL (0.8-5.3); ABSOLUTE MONOCYTES 0.7 thou/uL (0.0-1.2); ABSOLUTE NEUTROPHILS 8.2 thou/uL (1.6-8.1); BASOPHILS 0.5 %; EOSINOPHILS 0.4 %; HEMATOCRIT 38.1 % (37.0-47.0); HEMOGLOBIN 12.8 gm/dL (12.0-15.0); LYMPHOCYTES 14.8 %; MCHC 33.7 g/dL (28.0-37.0); MCV 88.8 fL (80.0-100.0); MONOCYTES 6.4 %; NUCLEATED RBCS 0 /100WBC; PLATELET COUNT* 412 thou/uL (150-400); POLYS 77.9 %; RBC 4.29 mil/uL (4.20-5.00); RDW-CV 16.4 % (10.5-14.5); WBC 10.5 thou/uL (4.0-11.0)
[2021-04-15 15:11] LABS: CALCIUM 8.3 mg/dL (8.5-10.1)
[2021-04-15 15:16] LABS: TOTAL BILIRUBIN 0.3 mg/dL (<0.1-1.0); TOTAL PROTEIN 7.4 g/dL (6.4-8.2)
[2021-04-15 15:37] LABS: URINE BLOOD NEGATIVE (Negative); URINE CLARITY CLEAR; URINE COLOR YELLOW; URINE GLUCOSE-RANDOM NEGATIVE (Negative); URINE KETONES TRACE (Negative); URINE LEUKOCYTES-REFLEX NEGATIVE (Negative); URINE NITRITE-REFLEX NEGATIVE (Negative); URINE PROTEIN 1+ (Negative); URINE SPECIFIC GRAVITY >= 1.030 (1.005-1.030); URINE UROBILINOGEN 0.2 E.U./dl (0.2-1.0)
[2021-04-15 15:45] LABS: ICTOTEST (BILI CONFIRMATORY) Negative (Negative); URINE BILIRUBIN 1+ (Negative)
--- NOTE | 2021-04-15 18:36 | NUR ---
CALLED PHARMACY FOR DEXTROSE, AND FLUCONAZOLE
[2021-04-15 20:30] VITALS: BP 105/54
[2021-04-16] VITALS (8 sets, daily range): BP systolic 104–126; BP diastolic 46–57
[2021-04-16 01:42] LABS: CALCIUM 7.9 mg/dL (8.5-10.1); CREATININE 3.3 mg/dL (0.6-1.3); POTASSIUM 5.3 mmol/L (3.5-5.1)
[2021-04-16 01:43] LABS: HEMATOCRIT 32.8 % (37.0-47.0); HEMOGLOBIN 10.9 gm/dL (12.0-15.0); MCH 29.5 pg (26.0-34.0); MCHC 33.3 g/dL (28.0-37.0); MCV 88.4 fL (80.0-100.0); MPV 7.1 fl. (7.2-11.1); RBC 3.71 mil/uL (4.20-5.00); RDW-CV 16.8 % (10.5-14.5); WBC 9.3 thou/uL (4.0-11.0)
--- NOTE | 2021-04-16 07:35 | NUR ---
TOOK OVER PT AT 0700. PT WET AND INCONT. OF BOWEL AND BLADDER. IV RIGHT FA INFILTRATED. PT CLEANED UP AND NEW BED LINEN PUT ON. RT FA IV DC'D AND NEW IV 20G PUT IN RIGHT AC X 1 STICK. IV FLUIDS INFUSING.
--- NOTE | 2021-04-16 13:31 | EKG ---
[place] [address] ELECTROCARDIOGRAM REPORT Name: ANTONIA SQUIRES Room: [place] [address] ADM IN ..#: [id number] Admission: 04/15/21 Attend Phys: Miranda Aguirre MD Discharge: Date of : 35 Date of Service: 04/15/21 1429 Report #: [id number] THIS REPORT FOR: //name// [facility] ED Test Date: 2021-04-15 Test Time: 14:29:49 Pat Name: ANTONIA SQUIRES Department: Room: [facility] Gender: F Kettle Cook: JIMBO : 1935 Requested By: Mata Ku Order Number: [id number] MD: Abhijeet Patel Measurements Intervals [place] Rate: 61 P: 73 [place]: 187 QRS: -12 QRSD: 92 T: 59 QT: 427 QTc: 430 Interpretive Statements Sinus rhythm Consider left atrial enlargement Low voltage, precordial leads Compared to ECG 03/29/2021 00:05:02 Low QRS voltage now present Left ventricular hypertrophy no longer present Electronically Signed On 04-16-2021 13:31:22 CDT by Abhijeet Patel [email or web address] <ELECTRONICALLY SIGNED> By: Abhijeet Patel MD, FAC 04/16/21 1331 1429 1429 Abhijeet Patel MD, FAC /EPI
--- NOTE | 2021-04-16 17:23 | NUR ---
BM LIQUID THIS AM MIXED WITH URINE. PT INCONT. BOWEL AND BLADDER.
--- NOTE | 2021-04-16 17:27 | NUR ---
CALLED JADE ZAYAS AND INFORMED HER, MOTHER IS MOVING TO ROOM 212. MARQUEZ APPRECIATIVE OF CALL.
--- NOTE | 2021-04-16 19:43 | NUR ---
PT ADMITTED TO ROOM 212 VIA BED FROM ED AT APPROX 1750, REPORT RECEIVED FROM JOSH COATS. PT AOX1, C/O BACKPAIN BUT NO PAIN MEDS ON BOARD SO NOTE SENT TO DR THOMAS (FORWARDED TO DR COONEY), AWAITING ORDERS. PT ORIENTED TO ROOM AND CALL LIGHT. ADMISSION ASSESSMENT AND HX COMPLETED BEST IT COULD BE GIVEN PT'S ORIENTATION STATUS. PT BEING TURNED Q2H AND INCONTINENT OF BOWEL AND BLADDER, NS CURRENTLY GOING, SKIN INTACT BUT SOME SCARS NOTED TO BUTTOCK AND BOTTOM OF STOMACH FOLD WELL POWDER UNDER L BREAST BUT NO NOTICEABLE YEAST.
[2021-04-17 05:16] LABS: HEMOGLOBIN 10.9 gm/dL (12.0-15.0); MCH 29.7 pg (26.0-34.0); MPV 6.6 fl. (7.2-11.1); WBC 6.4 thou/uL (4.0-11.0)
[2021-04-17 05:19] LABS: HEMATOCRIT 32.5 % (37.0-47.0); MCHC 33.7 g/dL (28.0-37.0); MCV 88.1 fL (80.0-100.0); RBC 3.69 mil/uL (4.20-5.00); RDW-CV 16.7 % (10.5-14.5)
[2021-04-17 05:26] LABS: CALCIUM 7.4 mg/dL (8.5-10.1); POTASSIUM 4.4 mmol/L (3.5-5.1)
[2021-04-17 05:27] VITALS: BP 118/52
[2021-04-17 05:28] LABS: CREATININE 1.4 mg/dL (0.6-1.3)
--- NOTE | 2021-04-17 06:15 | NUR ---
PT AO TO SELF, CONFUSED BUT PLEASANT AND COOPERATIVE. CO HEADACHED AND BACK PAIN, TYLENOL GIVEN WITH GOOD RELIEF OVERNIGHT. HS ACCUCHECK 130. TELE SR. ROOM AIR [id number]%. RAC IVF INFUSING PER PUMP. INCONT BOWEL AND BLADDER, NESSA CARE GIVEN, PT TURNED AND REPOSITIONED Q2 HOURS AND PRN FOR SKIN CARE AND COMFORT. NYSTATING AND ZINCE APPLIED TO NESSA AREA, NYSTATIN UNDER BREASTS AND FOLDS. TAKING PILLS WHOLE WITH APPLESAUCE WITHOUT DIFFICULTY. ABLE TO USE CALL LITE AT TIMES AND MAKE NEEDS KNOWN.BEDREST, BED ALARM ON FOR SAFETY.
[2021-04-17 07:30] VITALS: BP 136/61
--- NOTE | 2021-04-17 11:24 | NUR ---
WOUND NURSE: PATIENT NOT WOUNDED. ON TURN SCHEDULE. RASH AND EXCORIATION IS RESOLVED. WILL DC WOUND NURSE CONSULT.
[2021-04-17 11:30] VITALS: BP 113/47
--- NOTE | 2021-04-17 14:32 | NUR ---
CM spoke with Pt's dtr via phone. Pt has been skilled at [facility], originally sent on 03/27/21. Dtr continues to believe that Pt will need continued rehab post dc. CM provided dtr with a list of alternate SNF facilities that accept Pt's insurance. Dtr to speak with her sister this evening to determine if they want Pt to return to [facility] vs dc to another SNF facilities, dtr will let CM know in the morning. Therapies to see today. When not in skilled, Pt resides at home with , is Pt's CG with the help of their kids. CM following.
[2021-04-17 16:00] VITALS: BP 125/53
--- NOTE | 2021-04-17 18:53 | NUR ---
PT TOLERATING DIET WELL TODAY. IV INFUSING 125ML/HR OF NS. CHILD CARE SUPERVISOR TRACING SINUS RHYTHM. PT HAS BEEN INCONTINENT OF BOWEL AND BLADDER THROUGHOUT THE DAY. PT STOOL CONSISTENCY IS LOOSE. PT APPROPIATE ORIENT TO SELF. PLAN TO DC TO SNF WHEN AUTH OBTAINED. DTR WOULD PREFER TO GO SOMEWHERE OTHER THAN [facility]. CM IS FOLLOWING UP WITH DTR ON PLACEMENT. PT CURRENTLY RESTING COMFORTABLY.
[2021-04-17 20:15] VITALS: BP 120/55
[2021-04-18 00:47] VITALS: BP 116/40
[2021-04-18 04:53] VITALS: BP 147/69
--- NOTE | 2021-04-18 06:50 | NUR ---
PT SLEPT OFF AND ON OVERNIGHT,AO TO SELF AND SITUATION AT TIMES, CONFUSED. TYLENOL GIVEN FOR BACK AND LEG PAIN WITH FAIR RESULT. PT AWAKE SINCE ABOUT 0400, FORGETFUL AND USING CALL LITE REPEATEDLY ASKING THE SAME QUESTIONS. TYLENOL AND LORAZEPAM GIVEN THIS MORNING. RAC IVF INFUSING PER PUMP. PT TURNED AND REPOSITIONED Q2 HOURS AND PRN FOR SKIN CARE AND COMFORT, INCONT BM,NESSA CARE GIVEN.
[2021-04-18 07:32] VITALS: BP 143/67
--- NOTE | 2021-04-18 08:36 | NUR ---
ASSUMED CARE OF PT THIS AM AROUND 0715- TENTER FRAME BACK TENDER IN PLACE ORDERED, TRACING SR- UPON ASSESSMENT PT NOTED TO BE RESTING IN BED- PT A&O X4, FORGETFULL-INCONT OF B/B- Q [address] R/T SAFETY/NEEDS- LCTA, RESP EVEN AND UNLARBORED- VSS, O2 SAT 98% ON RA- ABD SOFT/ROUND/NON-TENDER, BS X4 QUADS- LAST BM REPORTED 04/17/21-SET UP ASSIST REQUIRED WITH MEALS. FAIR PO INTAKE NOTED-IV NOTED TO RIGHT INTACT, IVF INFUSSING PRESCRIBED- TRACE EDEMA NOTED TO BLE- GENERALIZED DISCOMFORT REPORTED THIS AM, REPOSITIONING IN PLACE- CALL LIGHT AND PERSONAL BELONGINGS WITH IN REACH- HOURLY ROUNDS IN PLACE R/T SAFETY/NEEDS- BED ALARM IN PLACE AND WORKING FOR PT SAFETY/NEEDS- ALL NEEDS MET AT THIS TIME
--- NOTE | 2021-04-18 09:40 | NUR ---
CM spoke with Pt's dtr this AM, dtr wanting Pt to return to [facility] at dc. CM faxed referral and asked [employer] to initiate insurance auth. Pt is close to being medically stable to dc, pending insurance auth. Following.
[2021-04-18 12:00] VITALS: BP 138/63
[2021-04-18 16:00] VITALS: BP 159/80
[2021-04-18 20:29] VITALS: BP 149/75
[2021-04-19 00:35] VITALS: BP 140/77
[2021-04-19 05:07] LABS: CALCIUM 7.1 mg/dL (8.5-10.1); CREATININE 0.9 mg/dL (0.6-1.3); POTASSIUM 3.2 mmol/L (3.5-5.1)
--- NOTE | 2021-04-19 05:40 | NUR ---
PT IS ABLE TO COMMUNICATE HER NEEDS TO STAFF WITH MINOR DIFFICULTY; SHE IS CONFUSED AND HAS SOME ANXIETY AT TIMES. CURRENT PAIN MEDICATION REGIMEN HAS BEEN ADEQUATE FOR CONTROLLING HER PAIN UP TO THIS TIME. PT FREQUENTLY INCONTINENT; CLEANED AND REPOSITIONED OFTEN.
[2021-04-19 05:57] VITALS: BP 137/82
[2021-04-19 08:00] VITALS: BP 129/68
--- NOTE | 2021-04-19 09:24 | NUR ---
Insurance auth received. Pt discharging to [facility] SNF today. Faxed dc orders. Chart copied. Nurse report number is [phone]. Updated Pt's dtr. Facility to pickling grader and transport at 2pm
[2021-04-19 12:24] VITALS: BP 142/64
--- NOTE | 2021-04-19 15:23 | NUR ---
ASSUMED PT CARE AT 0730, PT AOX2, PLEASANTLY CONFUSED, BEING TURNED Q2H, INCONTINENT AND BEING CLEANED UP FREQUENTLY. PT WORKED W/ PT TODAY, WAS ABLE TO STAND FOR A FEW SECONDS W/ A WALKER AND GAIT BELT. DC ORDERS RECEIVED, IV AND PACKAGER MACHINE REMOVED. PT DC'D BY [facility] W/ TRANSPORT FROM [facility] W/ ALL PAPERWORK AND PERSONAL BELONGINGS AT APPROX 1524
== END 2021-04-19 15:24 | DRG 682 ==
LOC: M.ERS 14:17 → M.TBA-ER 16:34 → M.2W 16:34
PROVIDERS: Emergency Medicine Emergency Medical Services; ADMIT Family Medicine; ATTEND Family Medicine
DX: N17.0 Acute kidney failure with tubular necrosis (principal); G93.41 Metabolic encephalopathy; J15.9 Unspecified bacterial pneumonia; E44.1 Mild protein-calorie malnutrition; M48.56XA Collapsed vertebra, not elsewhere classified, lumbar region, initial encounter for fracture; E87.1 Hypo-osmolality and hyponatremia; E87.5 Hyperkalemia; L30.8 Other specified dermatitis; Z20.822 Contact with and (suspected) exposure to COVID-19; G25.81 Restless legs syndrome; F41.9 Anxiety disorder, unspecified; F32.9 Major depressive disorder, single episode, unspecified; E66.01 Morbid (severe) obesity due to excess calories; N18.30 Chronic kidney disease, stage 3 unspecified; I12.9 Hypertensive chronic kidney disease with stage 1 through stage 4 chronic kidney disease, or unspecified chronic kidney disease; E11.22 Type 2 diabetes mellitus with diabetic chronic kidney disease; R91.8 Other nonspecific abnormal finding of lung field; Z90.710 Acquired absence of both cervix and uterus; Z90.49 Acquired absence of other specified parts of digestive tract; Z88.8 Allergy status to other drugs, medicaments and biological substances; Z88.2 Allergy status to sulfonamides; Z98.49 Cataract extraction status, unspecified eye; Z89.429 Acquired absence of other toe(s), unspecified side; Z79.899 Other long term (current) drug therapy; Z68.27 Body mass index [BMI] 27.0-27.9, adult

== ENCOUNTER 2021-06-06 06:06 | Emergency (ER) | payer BC ==
[~2021-06-06] VITALS: Ht 162.6 cm; Wt 66.3 kg
[~2021-06-06 06:06] MED LIST changes: +CIPRO250 M2 PO; +NEXIUM 40 MG CA40 M1 PO; +SUPER THERAVIT1 EACH PO
[2021-06-06] MEDS ORDERED: HYDROCODON-ACE1 EAC7 PO (06:19)
[2021-06-06] MEDS ORDERED: MELATONIN3 M1 PO (06:19)
[2021-06-06] MEDS ORDERED: TYLENOL PO (06:21)
[2021-06-06 06:51] LABS: ABSOLUTE BASOPHILS 0.1 thou/uL (0.0-0.2); ABSOLUTE LYMPHOCYTES 1.6 thou/uL (0.8-5.3); ABSOLUTE NEUTROPHILS 7.8 thou/uL (1.6-8.1); BASOPHILS 0.5 %; EOSINOPHILS 0.4 %; HEMATOCRIT 28.4 % (37.0-47.0); HEMOGLOBIN 9.6 gm/dL (12.0-15.0); MCHC 33.6 g/dL (28.0-37.0); MCV 92.3 fL (80.0-100.0); MONOCYTES 9.8 %; NUCLEATED RBCS 0 /100WBC; PLATELET COUNT* 392 thou/uL (150-400); POLYS 74.3 %; RBC 3.08 mil/uL (4.20-5.00); RDW-CV 18.1 % (10.5-14.5); WBC 10.5 thou/uL (4.0-11.0)
[2021-06-06 07:01] LABS: INR 1.2
[2021-06-06 07:15] LABS: CALCIUM 7.7 mg/dL (8.5-10.1)
[2021-06-06 07:22] LABS: ALBUMIN 1.4 g/dL (3.4-5.0); TOTAL BILIRUBIN 0.7 mg/dL (<0.1-1.0); TOTAL PROTEIN 6.9 g/dL (6.4-8.2)
[2021-06-06 07:23] LABS: POTASSIUM 2.5 mmol/L (3.5-5.1)
[2021-06-06 08:42] VITALS: BP 136/69
== END 2021-06-06 10:32 | disposition home or self-care (01) ==
LOC: M.ERS 06:06
PROVIDERS: Personal Emergency Response Attendant
DX: S60.222A Contusion of left hand, initial encounter (principal); E87.6 Hypokalemia; E11.9 Type 2 diabetes mellitus without complications; I10 Essential (primary) hypertension; F41.9 Anxiety disorder, unspecified; Z90.711 Acquired absence of uterus with remaining cervical stump; Z90.49 Acquired absence of other specified parts of digestive tract; Z90.89 Acquired absence of other organs; Z98.890 Other specified postprocedural states; Z79.899 Other long term (current) drug therapy; Z88.5 Allergy status to narcotic agent; Z88.8 Allergy status to other drugs, medicaments and biological substances; Z88.2 Allergy status to sulfonamides; X58.XXXA Exposure to other specified factors, initial encounter; Y93.89 Activity, other specified; Y92.128 Other place in nursing home as the place of occurrence of the external cause; Y99.8 Other external cause status